=== PATIENT | male | born 1945 | race Caucasian/White ===

== ENCOUNTER 2016-05-06 11:38 | Inpatient (IN) | payer MEDICARE, OTHER ==
[~2016-05-06] VITALS: Ht 182.9 cm; Wt 101.3 kg
[2016-05-06] VITALS (9 sets, daily range): BP systolic 120–161; BP diastolic 51–81
--- NOTE | 2016-05-06 11:47 | PHYS DOC ---
Adult General HPI HPI Patient is a 71 year old male who presents with chest pain to the [facility]. He was seen and evaluated there and had an elevated troponin spoke with cardiology here who wanted the patient transferred to the ER for further evaluation and treatment. The patient currently states he's pain-free. He states overnight he had substernal chest pressure and he took 6 baby aspirin's. Upon arrival to the ER I believe he got to additional aspirins IV beta angelic and heparin. Currently he denies any pain or discomfort at this time. He does have a history of coronary disease and has had stents and bypass surgery in the past. Does continue to smoke 5-8 cigarettes daily. He has family history of coronary disease with his dad having coronary disease in his 50s. According to review records she has a history of diabetes, hypothyroidism, coronary artery disease, dyslipidemia, hearing loss, anemia, back abuse. He received aspirin in addition to 4000 units of IV heparin and 2 mg IV metoprolol prior to being transferred to [place]. Review of Systems Review of Systems Constitutional: Denies fever or chills [] Eyes: Denies change in visual acuity, redness, or eye pain [] HENT: Denies nasal congestion or sore throat [] Respiratory: Denies cough or shortness of breath [] Cardiovascular: No additional information not addressed in HPI [] GI: Denies abdominal pain, nausea, vomiting, bloody stools or diarrhea [] : Denies dysuria or hematuria [] Musculoskeletal: Denies back pain or joint pain [] Integument: Denies rash or skin lesions [] Neurologic: Denies headache, focal weakness or sensory changes [] Endocrine: Denies polyuria or polydipsia [] Allergies Allergies Allergies Coded Allergies Type Severity Reaction Last Updated Verified Jtuhskd-Qah-Scl Reductase Inhibitor Allergy Severe "LOSS OF MUSCLE " 05/06/16 Yes influenza virus vaccine qs 3655-0835 (36 mos +) Allergy Intermediate 05/06/16 No Physical Exam Physical Exam Constitutional: Well developed, well nourished, no acute distress, non-toxic appearance. [] HENT: Normocephalic, atraumatic, bilateral external ears normal, oropharynx moist, no oral exudates, nose normal. [] Eyes: PERRLA, EOMI, conjunctiva normal, no discharge. [] Neck: Normal range of motion, no tenderness, supple, no stridor. [] Cardiovascular:Heart rate regular rhythm, no murmur [] Lungs & Thorax: Bilateral breath sounds clear to auscultation [] Abdomen: Bowel sounds normal, soft, no tenderness, no masses, no pulsatile masses. [] Skin: Warm, dry, no erythema, no rash. [] Back: No tenderness, no CVA tenderness. [] Extremities: No tenderness, no cyanosis, no clubbing, ROM intact, no edema. [] Neurologic: Alert and oriented X 3, normal motor function, normal sensory function, no focal deficits noted. [] Psychologic: Affect normal, judgement normal, mood normal. [] Current Patient Data Vital Signs Vital Signs Date Time Temp Pulse Resp B/P Pulse Ox O2 Delivery O2 Flow Rate FiO2 05/06/16 11:38 98.2 66 158/70 99 Nasal Cannula 2 98.2 Lab Values Laboratory Tests Test 05/06/16 11:50 Creatine Kinase 262U/L (39-308) Creatine Kinase MB (Mass) 22.5ng/mL (0.0-3.6) H Creatine Kinase MB Relative Index 8.6% (0-4) H Troponin I Quantitative 3.775ng/mL (0.000-0.055) EKG EKG EKG shows sinus rhythm at a [address] elevations or T-wave inversions, EKG appears unchanged from previous EKG at the outside facility dated May 06 at 8:54 AM. Radiology/Procedures Radiology/Procedures [] Impressions: Elevated troponin Diabetes Coronary artery disease Tobacco abuse Course & Med Decision Making Course & Med Decision Making Pertinent Labs and Imaging studies reviewed. (See chart for details) Patient presents with lab work from outside facility with white blood cells of 6.1, hemoglobin 11.0, creatinine of 1.2 with a GFR 55, troponin noted to be 0.77. BNP of 180 within normal range is 0-100. Patient is being admitted to the hospitalist with cardiology consultation. Interim orders have been written. Dragon Disclaimer Dragon Disclaimer This electronic medical record was generated, in whole or in part, using a voice recognition dictation system. Departure Departure Impression: Primary Impression: Chest pain Disposition: ADMITTED INPATIENT Admitting Physician: Candido Becerra Condition: STABLE DG BOLANOS MD May 06, 2016 11:47
[2016-05-06 12:39] LABS: CKMB INDEX 8.6 % (0-4); CKMB MASS 22.5 ng/mL (0.0-3.6)
[2016-05-06] MEDS ORDERED: LIDOCAINE 2% 20 ML VIAL. ONE (13:07)
[2016-05-06] MEDS ORDERED: IODIXANOL 320 MG/ML 100 ML VIAL. ONE ×3 (13:07→14:05)
[2016-05-06 13:09] LABS: CALCIUM 8.7 mg/dL (8.5-10.1); CREATININE 1.2 mg/dL (0.7-1.3); GFR 59.7; POTASSIUM 4.3 mmol/L (3.5-5.1)
[2016-05-06 13:15] LABS: ALBUMIN 3.2 g/dL (3.4-5.0); ALBUMIN/GLOBULIN RATIO 0.9 (1.0-1.7); MAGNESIUM 2.2 mg/dL (1.8-2.4); TOTAL BILIRUBIN 0.3 mg/dL (0.2-1.0); TOTAL PROTEIN 6.7 g/dL (6.4-8.2)
--- NOTE | 2016-05-06 13:25 | PDOC2 ---
SRINATH OWENS MERCHANDISE EXAMINER 05/06/16 1325: CARDIAC CONSULT DATE OF CONSULT Date of Consult DATE: 05/06/16 TIME: 12:59 REASON FOR CONSULT Reason for Consult: NSTEMI REFERRING PHYSICIAN Referring Physician: Junior SOURCE Source: Chart review, Patient HISTORY OF PRESENT ILLNESS HISTORY OF PRESENT ILLNESS This is a pleasant 71 yo male admitted for complains of chest pain. Reports waking up at around 1 AM with SOA then followed by retrosternal pressure which lasted about 30 minutes and then went on and off, waxing and waning. He felt that 6 total of 81 mg ASA helped with his chest pain. Denies any nausea, diaphoresis, or palpitations. Denies any significant changes with his activity tolerance although his activity is about METS3-5 and utilizes a cane with walking. He decided to stay home upon onset of his chest pain and finally went to [facility] this morning and was told that he may have a mild heart attack and noted that his troponin was elevated. EMS was called at the clinic and was advised to come to [facility] ED. Currently he is symptom free. He just moved here from 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 He has CAD with CABG in 2005. He has not had any recent stress test and the last time he saw a granite countertop installer was about 2-3 yrs ago. Denies any VTE, falls, or any recent injury. No hx of arrhythmias but continues to be smoking tobacco. PAST MEDICAL HISTORY Cardiovascular: CAD, HTN, Hyperlipidemia Pulmonary: No pertinent hx CENTRAL NERVOUS SYSTEM: Other (No pertinent history) GI: Constipation, GERD Heme/Onc: No pertinent hx Hepatobiliary: No pertinent hx Psych: No pertinent hx Musculoskeletal: Osteoarthritis, Other (osteomyelitis) Rheumatologic: No pertinent hx Infectious disease: No pertinent hx ENT: Other (diabetic retinopathy; cataract; JAMUL mainly to ) Renal/: Benign prostatic enlarg. Endocrine: Diabetes (2- insulin dependent) Dermatology: No pertinent hx PAST SURGICAL HISTORY Past Surgical History: CABG (x3), Other (right foot surgery 10/2015 due to nonhealing wound with MRSA; eye surgery) FAMILY HISTORY Family History: Coronary Artery Disease (mother and father) SOCIAL HISTORY Smoke: <1 pack per day ALCOHOL: none Drugs: None Lives: with Family ALLERGIES ALLERGIES: Coded Allergies: Cnqdisv-Uhb-Ipx Reductase Inhibitor (Verified Allergy, Severe, "LOSS OF MUSCLE ", 05/06/16) influenza virus vaccine qs 0247-9250 (36 mos +) (Unverified Allergy, Intermediate, 05/06/16) ROS Review of System 14 point ROS evaluated with pertinent positives noted per HPI PHYSICAL EXAM General: Alert, Oriented X3, Cooperative, No acute distress HEENT: Atraumatic, Mucous membr. moist/pink Lungs: Clear to auscultation, Normal air movement Heart: Regular rate, Normal S1, Normal S2, Other (2/6 systolic murmur to WESLY border; S4) Abdomen: Soft, No tenderness, Other (truncal obesity) Extremities: No cyanosis, Other (3+ bilateral LE pitting edema) Skin: No breakdown, No significant lesion Neuro: Normal speech, Sensation intact Psych/Mental Status: Mental status NL, Mood NL MUSCULOSKELETAL: Osteoarthritic changes both hands VITALS VITALS Vital Signs Date Time Temp Pulse Resp B/P Pulse Ox O2 Delivery O2 Flow Rate FiO2 05/06/16 11:38 98.2 66 158/70 99 Nasal Cannula 2 98.2 LABS Lab: Laboratory Tests Test 05/06/16 11:50 Creatine Kinase 253U/L (39-308) Creatine Kinase MB (Mass) 22.5ng/mL (0.0-3.6) Creatine Kinase MB Relative Index 8.6% (0-4) Troponin I Quantitative 3.775ng/mL (0.000-0.055) IMAGES IMAGES CXR at [facility] 05/06/2016 with normal pulmonary vascularity. Notable for mild cardiomegaly. Lung volumes mildly decreased. No acute infiltrates or effusions. No bony abnormality. ASSESSMENT/PLAN ASSESSMENT/PLAN 1. NSTEMI: Initial troponin at [facility] at 0.7 and now at 3.7. EKG SR with RBBB, first degree AV block with anterolateral and aVR ST changes. ASA. Heparin IV bolus was given upon transfer from [facility]. Recommend [facility] today. Risks and benefits explained and agreeable to proceed. Labs and CXR reviewed from [facility]. TTE today. 2. CAD: CABG x3 at [facility] 2005. [facility] prior to CABG with 1 stent placed. Will try to obtain records. 3. HTN: does not take any antiHTN meds. Will reevaluate needs post cath. 4. HLP: intolerant to statin (significant myalgia and weakness), able to tolerate niacin. lipid panel. If uncontrolled then would consider PCSK9 inhibitor. 5. Hypothyroidism: TSH at 1.55. on replacement. 6. Tobaccoism: 25 pk yr. smoking cessation 7. DM2: insulin dependent. A1C. Per PCP 8. Hx of MRSA 9. Possible CKD 3 10. Chronic bilateral lower extremity edema, venous insufficiency? Problems: LOWELL QUACH MD 05/06/16 1555: CARDIAC CONSULT ALLERGIES ALLERGIES: Coded Allergies: Aqxubro-Zad-Zzk Reductase Inhibitor (Verified Allergy, Severe, "LOSS OF MUSCLE ", 05/06/16) influenza virus vaccine qs 3385-4698 (36 mos +) (Unverified Allergy, Intermediate, 05/06/16) ASSESSMENT/PLAN ASSESSMENT/PLAN Patient seen and examined. Agree with BOX TRUCK OWNER OPERATOR's assessment and plan. Patient with history of coronary artery disease s/p CABG has been admitted with non-STEMI. We will proceed with cardiac catheterization and possible angioplasty. Risks and benefits were explained. Check fasting lipid profile. Thank you for your consultation. Problems: SRINATH OWENS APRN May 06, 2016 13:25 LOWELL QUACH MD May 06, 2016 15:55
--- NOTE | 2016-05-06 13:32 | PDOC ---
MODERATE SEDATION ASSESSMENT RISKS/ALTERNATIVES Risks/Alternatives Risks and alternatives of this type of sedation and procedure discussed with: RISK/ALTERNATIVES: Patient H & P ON CHART H & P H & P on chart and reviewed for co-morbid conditions and appropriate labs. H&P ON CHART: Yes STATUS PREG STATUS ASSESSED: N/A MEDS/ALLERGIES REVIEWED Meds/Allergies Reviewed Medications and Allergies including time and route of recently administered narcotics and sedatives. MEDS/ALLERGIES REVIEWED: Yes ASA RATING ASA RATING: II AIRWAY ASSESSMENT Airway Assessment Airway patency, oral function limitations, presence of caps, crowns, dentures, partials, and ability to extend neck assessed. AIRWAY ASSESSMENT: Yes MALLAMPATI SCORE MALLAMPATI SCORE: II PRE-SEDATION ASSESSMENT PRE-SEDATION ASSESSMENT: Yes LOWELL QUACH MD May 06, 2016 13:32
[2016-05-06] MEDS ORDERED: HEPARIN for IV BOLUS 10,000 UNIT/10 ML VIAL. ONE (13:39)
[2016-05-06] MEDS ORDERED: MIDAZOLAM HCL/PF 5 MG/5 ML VIAL ONE (13:39)
[2016-05-06] MEDS ORDERED: NITROGLYCERIN 200 MCG/2 ML SYRINGE FOR CATH/VASC LAB. ONE (13:39)
[2016-05-06] MEDS ORDERED: FENTANYL PF 250 MCG/5 ML VIAL. ONE (13:39)
[2016-05-06] MEDS ORDERED: VERAPAMIL 5 MG/2 ML VIAL. ONE (13:39)
[2016-05-06] MEDS ORDERED: NITROGLYCERIN 200 MCG/2 ML SYRINGE FOR CATH/VASC LAB. IART ONE (14:00)
[2016-05-06] MEDS ORDERED: LIDOCAINE 2% 20 ML VIAL. IJ ONE (14:00)
[2016-05-06] MEDS ORDERED: HEPARIN for IV BOLUS 10,000 UNIT/10 ML VIAL. IART ONE (14:00)
[2016-05-06] MEDS ORDERED: FENTANYL PF 250 MCG/5 ML VIAL. IV ONE (14:00)
[2016-05-06] MEDS ORDERED: MIDAZOLAM HCL/PF 5 MG/5 ML VIAL IV ONE (14:00)
[2016-05-06] MEDS ORDERED: VERAPAMIL 5 MG/2 ML VIAL. IART ONE (14:00)
[2016-05-06] MEDS ORDERED: IODIXANOL 320 MG/ML 100 ML VIAL. IART ONE (14:00)
[2016-05-06] MEDS ORDERED: DEXTROSE 50% 25 GM / 50ML DISP.SYRIN. IV PRN (14:00)
[2016-05-06] MEDS ORDERED: hydrALAZINE 20 MG/ML VIAL. IVP PRN (14:00)
[2016-05-06] MEDS ORDERED: BIVALIRUDIN 250 MG VIAL IV ONE ×2 (14:04→14:15)
[2016-05-06] MEDS ORDERED: LEVO125T5 PO (14:33)
[2016-05-06] MEDS ORDERED: NIAC100T2 PO (14:33)
[2016-05-06] MEDS ORDERED: MULT1TAB52 PO (14:33)
[2016-05-06] MEDS ORDERED: ASPI-482 PO (14:33)
[2016-05-06] MEDS ORDERED: INSU100V8 SQ (14:33)
[2016-05-06] MEDS ORDERED: TAMS0.4C2 PO (14:33)
[2016-05-06] MEDS ORDERED: INSU100I17 SQ (14:33)
[2016-05-06] MEDS ORDERED: CLOPIDOGREL BISULFATE 75 MG TABLET ONE (15:01)
--- NOTE | 2016-05-06 15:04 | PDOC1 ---
History and Physical Date of Admission Date of Admission 05/06/16 Identification/Chief Complaint Chief Complaint chest pain Problems: Source Source: Chart review, Patient History of Present Illness History of Present Illness Patient is a 71 year old male who presents with chest pain to the [facility]. Pt had CABG before, compliant with meds, still smoking. He started to have chest pain last night, pressure, had sob, no N/V, fever, chills. He took 6 baby asa no improving. He went to CT, was found high troponin, and then spoke to dr. Webb and then sent here. Troponin >3. started heparin drip. got Cath today, one stent at RCA beyond the graft as per nurse. cough for 3 weeks, no copd. Past Medical History Cardiovascular: CAD, HTN, Hyperlipidemia Pulmonary: No pertinent hx CENTRAL NERVOUS SYSTEM: Other (No pertinent history) GI: Constipation, GERD Heme/Onc: No pertinent hx Hepatobiliary: No pertinent hx Psych: No pertinent hx Rheumatologic: No pertinent hx Infectious disease: No pertinent hx ENT: Other (diabetic retinopathy; cataract; [place] COURTE OREILLES mainly to ) Renal/: Benign prostatic enlarg. Endocrine: Diabetes (2- insulin dependent) Dermatology: No pertinent hx Past Surgical History Past Surgical History: CABG (x3), Other (right foot surgery 10/2015 due to nonhealing wound with MRSA; eye surgery) Family History Family History: Coronary Artery Disease (mother and father) Social History Smoke: <1 pack per day ALCOHOL: none Drugs: None Current Problem List Problem List Problems Medical Problems: (1) Chest pain Status: Acute Current Medications Current Medications Current Medications Medications (Trade) Dose Ordered Sig/Joey Start Time Stop Time Status Last Admin Dose Admin Bivalirudin (Angiomax) 250 mg 1X ONCE 05/06/16 14:15 05/06/16 14:16 DC Clopidogrel Bisulfate (Plavix) 75 mg STK-MED ONCE 05/06/16 15:01 05/06/16 15:02 DC Dextrose 12.5 gm PRN Q15MIN PRN 05/06/16 14:00 Fentanyl Citrate (Fentanyl 5ml Vial) 250 mcg 1X ONCE 05/06/16 14:00 05/06/16 14:01 DC Heparin Sodium (Porcine) 2,500 unit 1X ONCE 05/06/16 14:00 05/06/16 14:01 DC Heparin Sodium/ Sodium Chloride 1,000 unit 1X ONCE 05/06/16 14:00 05/06/16 14:01 DC Hydralazine HCl (Apresoline) 10 mg PRN Q4HRS PRN 05/06/16 14:00 Insulin Aspart (Novolog) 0-9 UNITS TIDWMEALS 05/06/16 17:00 Iodixanol (Visipaque 320) 100 ml STK-MED ONCE 05/06/16 14:05 05/06/16 14:06 DC Lidocaine HCl 20 ml 1X ONCE 05/06/16 14:00 05/06/16 14:01 DC Midazolam HCl (Versed) 5 mg 1X ONCE 05/06/16 14:00 05/06/16 14:01 DC Nitroglycerin (Nitroglycerin) 200 mcg 1X ONCE 05/06/16 14:00 05/06/16 14:01 DC Verapamil HCl (Verapamil) 2.5 mg 1X ONCE 05/06/16 14:00 05/06/16 14:01 DC Allergies Allergies Allergies Coded Allergies Type Severity Reaction Last Updated Verified Wiasuem-Myo-Psk Reductase Inhibitor Allergy Severe "LOSS OF MUSCLE " 05/06/16 Yes influenza virus vaccine qs 8237-1096 (36 mos +) Allergy Intermediate 05/06/16 No ROS Review of System CONSTITUTIONAL: No fever or chills EYES: No recent changes SKIN: No rash or itching CARDIOVASCULAR: No chest pain, syncope, palpitations, or edema RESPIRATORY: No SOB or cough GASTROINTESTINAL: No nausea, vomiting or abdominal pain NEUROLOGICAL: No headaches or weakness ENDOCRINE: No cold or heat intolerance GENITOURINARY: No urgency or frequency of urination MUSCULOSKELETAL: No back pain or joint pain LYMPHATICS: No enlarged lymph nodes PSYCHIATRIC: No anxiety or depression Physical Exam Physical Exam GEN.: No apparent distress. Alert and oriented. HEENT: Head is normocephalic, atraumatic NECK: Supple. LUNGS: Clear to auscultation. HEART: RRR, S1, S2 present. Peripheral pulses intact ABDOMEN: Soft, nontender. Positive bowel sounds. EXTREMITIES: Without any cyanosis. NEUROLOGIC: Normal speech, normal tone PSYCHIATRIC: Normal affect, normal mood. SKIN: No ulcerations Vitals Vitals Vital Signs Date Time Temp Pulse Resp B/P Pulse Ox O2 Delivery O2 Flow Rate FiO2 05/06/16 14:57 69 14 95 Room Air 05/06/16 12:42 160/68 2 05/06/16 11:38 98.2 98.2 Labs Labs Laboratory Tests Test 05/06/16 11:50 Sodium Level 140mmol/L (136-145) Potassium Level 4.3mmol/L (3.5-5.1) Chloride Level 106mmol/L (98-107) Carbon Dioxide Level 28mmol/L (21-32) Anion Gap 6 (6-14) Blood Urea Nitrogen 27mg/dL (8-26) Creatinine 1.2mg/dL (0.7-1.3) Estimated GFR (Cockcroft-Gault) 59.7 BUN/Creatinine Ratio 23 (6-20) Glucose Level 96mg/dL (70-99) Calcium Level 8.7mg/dL (8.5-10.1) Magnesium Level 2.2mg/dL (1.8-2.4) Total Bilirubin 0.3mg/dL (0.2-1.0) Aspartate Amino Transf (AST/SGOT) 38U/L (15-37) Alanine Aminotransferase (ALT/SGPT) 37U/L (16-63) Alkaline Phosphatase 68U/L (46-116) Creatine Kinase 262U/L (39-308) Creatine Kinase MB (Mass) 22.5ng/mL (0.0-3.6) Creatine Kinase MB Relative Index 8.6% (0-4) Troponin I Quantitative 3.775ng/mL (0.000-0.055) Total Protein 6.7g/dL (6.4-8.2) Albumin 3.2g/dL (3.4-5.0) Albumin/Globulin Ratio 0.9 (1.0-1.7) Thyroid Stimulating Hormone (TSH) 1.917uIU/mL (0.358-3.74) Laboratory Tests Test 05/06/16 11:50 Sodium Level 140mmol/L (136-145) Potassium Level 4.3mmol/L (3.5-5.1) Chloride Level 106mmol/L (98-107) Carbon Dioxide Level 28mmol/L (21-32) Anion Gap 6 (6-14) Blood Urea Nitrogen 27mg/dL (8-26) Creatinine 1.2mg/dL (0.7-1.3) Estimated GFR (Cockcroft-Gault) 59.7 BUN/Creatinine Ratio 23 (6-20) Glucose Level 96mg/dL (70-99) Calcium Level 8.7mg/dL (8.5-10.1) Magnesium Level 2.2mg/dL (1.8-2.4) Total Bilirubin 0.3mg/dL (0.2-1.0) Aspartate Amino Transf (AST/SGOT) 38U/L (15-37) Alanine Aminotransferase (ALT/SGPT) 37U/L (16-63) Alkaline Phosphatase 68U/L (46-116) Creatine Kinase 262U/L (39-308) Creatine Kinase MB (Mass) 22.5ng/mL (0.0-3.6) Creatine Kinase MB Relative Index 8.6% (0-4) Troponin I Quantitative 3.775ng/mL (0.000-0.055) Total Protein 6.7g/dL (6.4-8.2) Albumin 3.2g/dL (3.4-5.0) Albumin/Globulin Ratio 0.9 (1.0-1.7) Thyroid Stimulating Hormone (TSH) 1.917uIU/mL (0.358-3.74) VTE Prophylaxis Ordered VTE Prophylaxis Devices: Yes VTE Pharmacological Prophylaxi: Yes Assessment/Plan Assessment/Plan 1. NSTEM post PCI with 1 stent at RCA 2. h/o CAD: CABG x3 at [facility] 2006. [facility] prior to CABG with 1 stent placed. 3. HTN 4. HLP 5. Hypothyroidism 6. Tobaccoism: 25 pk yr. smoking cessation 7. DM2: insulin dependent. on lantus 30u and aspart 10u tid 8. Hx of MRSA 9. ckd2 10. Chronic bilateral lower extremity edema 2/2 venous insufficiency? plan: 1. POST pci, FU with card 2. on asa , plavix 3. slightly decrease insulin, levemir 25u qhs, aspart 8u tid, SSI 4. pt may benefit from ACEI, echo pending mild bradycardia 5. cont synthroid, tsh done check hba1c, lipid panel check CXR, albuterol prn dvt ppx NGOC DOMINGUEZ MD May 06, 2016 15:04
[2016-05-06] MEDS ORDERED: ACETAMINOPHEN 325 MG TABLET. PO PRN ×2 (15:15→16:15)
[2016-05-06] MEDS ORDERED: MORPHINE SULFATE 4 MG/ML DISP.SYRIN. IV PRN (15:15)
[2016-05-06] MEDS ORDERED: ONDANSETRON PF 4 MG/2 ML VIAL. IV PRN (15:15)
[2016-05-06] MEDS ORDERED: MORPHINE SULFATE 2 MG/ML DISP.SYRIN. IV PRN (15:15)
[2016-05-06] MEDS ORDERED: CLOPIDOGREL BISULFATE 75 MG TABLET PO ONE (15:15)
--- NOTE | 2016-05-06 15:22 | EKG ---
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
[2016-05-06] MEDS ORDERED: ALBUTEROL SULFATE 2.5 MG/3 ML NEBU. NEB PRN (15:45)
[2016-05-06] MEDS ORDERED: IV 1/2 NORMAL SALINE 1,000 ML IV SCH (16:03)
[2016-05-06] MEDS ORDERED: NITROGLYCERIN SUBLINGUAL 0.4 MG BOTTLE OF 25. SL PRN (16:15)
[2016-05-06] MEDS: INSULIN ASPART 300 UNITS/3 ML INSULN.PEN SQ SCH ×2 (16:30→17:00)
--- NOTE | 2016-05-06 16:41 | CARD ---
APPROVED REPORT Procedure(s) performed: 1. Left heart catheterization, selective coronary angiography via left trans radial approach 2. Successful PCI/drug eluting stent placement to the posterolateral branch of right coronary artery INDICATION The indication(s) include : non-STEMI . PROCEDURE NARRATIVE After explaining the risks, benefits and alternative options, informed consent was obtained from jose ent. Patient was brought to the cardiac Die Maker Trim and his left wrist was prepped and draped in the us ual fashion after confirming a positive modified Brock's test. Arterial access was obtained the left radial artery and 6 [place] sheath was inserted. 6 [place] JR4 catheter was used to perform selective angiography of the left internal mammary artery graft to the left anterior descending artery, the na tive right coronary artery and also the saphenous vein graft to the obtuse marginal branch. 6 [place] JL4 catheter was used to perform selective angiography of the left coronary artery. 6 [place] multip urpose catheter was used to perform selective angiography of the saphenous vein graft to the right co ronary artery. The following findings were noted. FINDINGS 1. The left main coronary artery arose from the left sinus of Valsalva, gave rise to the left antige n descending and left circumflex arteries and did not show any significant stenosis. 2. The left anterior descending artery showed complete occlusion proximally. 3. The left circumflex artery showed 50% stenosis in the proximal to midsegment and 90% stenosis inv olving the proximal segment of the first obtuse marginal branch. The second obtuse marginal branch d id not show any significant stenosis. 4. The right coronary artery showed complete occlusion proximally. 5. The left internal mammary artery graft to the left anterior descending artery was widely patent. Distal to the anastomosis, the [place] left anterior descending artery did not show any significant s tenosis. 6. The saphenous vein graft to the first obtuse marginal branch did not show any significant stenosi s. 7. The saphenous vein graft to the right coronary artery itself did not show any significant stenosi s but the [place] posterolateral branch showed a long 90% stenosis involving the proximal and mid segm ents. INTERVENTION After initial unsuccessful attempts at gaining good guide support using 6 [place] multipurpose guide c dar[place], a 6 [place] RCB catheter was used to engage the saphenous vein graft to the right coronary ar nellie. The stenosis in the posterolateral branch was crossed with a 0.014 inch Oilex pro-water guidew reigna. This was predilated with a 2.5 x 20 mm trek balloon following which this was successfully treat ed with a 2.5 x 38 mm Xience alpine drug-eluting stent. Follow-up angiography showed resolution of t he stenosis to 0% with SONJA 3 distal flow. Patient tolerated the procedure well. Hemostasis was ach ieved using TR band. There were no immediate complications. Conclusion 1. Severe [place] vessel coronary artery disease s/p coronary artery bypass surgery as stated above w ith patent left internal mammary artery graft to the left anterior descending artery, patent saphenou s vein graft to the obtuse marginal branch and patent saphenous vein graft to the right coronary asif ry with [place] posterolateral branch beyond anastomosis showing 90% stenosis. 2. Successful PCI/drug eluting stent placement to the posterolateral branch of right coronary artery via the saphenous vein graft. Recommendations 1. Aspirin 325 mg daily 2. Plavix 75 mg daily for preferably one year 3. Cardiovascular risk factor modification.
--- NOTE | 2016-05-06 16:47 | CARD ---
APPROVED REPORT EXAM: Two-dimensional and M-mode echocardiogram with Doppler and color Doppler. Other Information Quality : Good INDICATION Non STEMI Surgery/Intervention CABD DIMENSIONS RVDd4.0 (2.9-3.5cm)Left Atrium(2D)4.7 (1.6-4.0cm) IVSd1.3 (0.7-1.1cm)Aortic Root(2D)3.4 (2.0-3.7cm) LVDd5.4 (3.9-5.9cm)LVOT Diameter2.5 (1.8-2.4cm) PWd0.8 (0.7-1.1cm)LVDs4.6 (2.5-4.0cm) FS (%) 25.0 %SV44.6 ml LVEF(%)50.0 (>50%) Aortic Valve AoV Peak Enoc.173.3cm/sAoV VTI38.2cm AO Peak GR.12.0mmHgLVOT VTI 18.01cm AO Mean GR.7mmHgAVA (VTI)2.30cm2 Mitral Valve MV E Wggcpiqc633.0cm/sMV DECEL [id number] MV A Gjunweie61.4cm/sE/A Ratio1.6 TDI Lateral E' P. V4.70cm/sMedial E' P. V4.76cm/s E/Lateral E'23.4E/Medial E'23.1 Tricuspid Valve TR P. Vwcjkcqf271sb/sRAP HYDOTAUV1fuUu TR Peak Gr.22gbPyCRXY93eoSa Pulmonary Vein S1 Tcvekyub56.7cm/sS2 Ijkettza54.11cm/s D2 Xlstcejh75.1cm/s LEFT VENTRICLE The left ventricle is normal size. There is mild concentric left ventricular hypertrophy. The Ejectio n Fraction is 50-55%. There is mild hypokinesis in the basal inferoposterior wall. Transmitral Dopple r flow pattern is Grade II-pseudonormal filling dynamics. RIGHT VENTRICLE The right ventricle is normal size. The right ventricular systolic function is normal. ATRIA The left atrium is mildly dilated. The right atrium size is normal. The interatrial septum is intact with no evidence for an atrial septal defect or patent foramen ovale as noted on 2-D or Doppler imagi ng. AORTIC VALVE The aortic valve is mildly thickened but opens well. Doppler and Color Flow revealed trace to mild ao rtic regurgitation. There is no significant aortic valvular stenosis. MITRAL VALVE The mitral valve is calcified but opens well. There is no evidence of mitral valve prolapse. There is no mitral valve stenosis. Doppler and Color-flow revealed mild mitral regurgitation. TRICUSPID VALVE The tricuspid valve is normal in structure and function. Doppler and Color Flow revealed trace tricus pid regurgitation. The PA pressure was estimated at 29 mmHg. There is no tricuspid valve stenosis. PULMONIC VALVE The pulmonary valve is normal in structure and function. Doppler and Color Flow revealed mild pulmoni c valvular regurgitation. There is no pulmonic valvular stenosis. GREAT VESSELS The aortic root is mildly enlarged at 3.4 cm. The ascending aorta is mildly dilated at 3.4 cm. The IV C was not visualized. PERICARDIAL EFFUSION There is no evidence of significant pericardial effusion. Critical Notification Critical Value: No <Conclusion> There is mild hypokinesis in the basal inferoposterior wall. The Ejection Fraction is 50-55%. The left atrium is mildly dilated. Trace to mild aortic regurgitation. Mild mitral regurgitation. Trace tricuspid regurgitation. The PA pressure was estimated at 29 mmHg. There is no evidence of significant pericardial effusion.
[2016-05-06] MEDS ORDERED: NALOXONE 0.4 MG/ML VIAL. ONE (16:54)
[2016-05-06] MEDS ORDERED: FLUMAZENIL 0.5 MG/5 ML VIAL. IV ONE (17:15)
[2016-05-06] MEDS ORDERED: NALOXONE 0.4 MG/ML VIAL. IV ONE (17:15)
--- NOTE | 2016-05-06 17:36 | RAD ---
PROCEDURE CT head without intravenous contrast. HISTORY Pre cardiac catheterization day. Swelling and fusion since waking. TECHNIQUE Axial images are obtained of the head from the skull base through the vertex without IV contrast Exposure: One or more of the following individualized dose reduction techniques were utilized for this examination: 1. Automated exposure control. 2. Adjustment of the mA and/or kV according to patient size. 3. Use of iterative reconstruction technique. COMPARISON None. FINDINGS Evaluation for subtle hemorrhage is limited secondary to presence of intravenous contrast within vascular structures. There is also motion artifact at multiple levels which could obscure subtle to medium-sized abnormalities. The ventricles are appropriate in size, shape, and location for the patient's age.No obvious intracranial mass, mass-effect, midline shift, hemorrhage or obvious acute infarction is identified.Basilar cisterns are patent. There is appropriate enhancement of the major intracranial vessels. Bone windows demonstrate no acute calvarial abnormality.The visualized paranasal sinuses appear clear. IMPRESSION 1. Limited examination as described above. 2. No acute intracranial process. Please note that CT can be relatively insensitive to acute ischemic infarction for up to 24 hours after symptom onset. 3. Results called to Tracey, an ICU nurse, who will relay the message to the clinical service and the patient's ICU nurse. Phone call made at 1734 hours. Electronically signed by: Boyd Clayton MD (May 06, 2016 17:35:04)
[2016-05-06] MEDS ORDERED: PNEUMOCOCCAL VAX SCREEN BY RX. MC PRN (18:15)
[2016-05-06] MEDS ORDERED: HALOPERIDOL LACT 5 MG/ML VIAL. IVP PRN (19:15)
--- NOTE | 2016-05-06 19:42 | PDOC2 ---
NEUROLOGY CONSULT Date of Admission Date of Admission Full Report Dictated DATE: 05/06/16 TIME: 19:40 Current Medications Current Medications Current Medications Heparin Sodium/ Sodium Chloride 500 ml @ As Directed STK-MED ONCE .ROUTE ; Start 05/06/16 at 13:07; Stop 05/06/16 at 13:08; Status DC Lidocaine HCl 20 ml STK-MED ONCE .ROUTE ; Start 05/06/16 at 13:07; Stop at 13:08; Status DC Iodixanol (Visipaque 320) 100 ml STK-MED ONCE .ROUTE ; Start 05/06/16 at 13:07; Stop 05/06/16 at 13:08; Status DC Iodixanol (Visipaque 320) 100 ml STK-MED ONCE .ROUTE ; Start 05/06/16 at 13:17; Stop 05/06/16 at 13:18; Status DC Nitroglycerin (Nitroglycerin) 200 mcg STK-MED ONCE .ROUTE ; Start 05/06/16 at 13 :39; Stop 05/06/16 at 13:40; Status DC Verapamil HCl (Verapamil) 5 mg STK-MED ONCE .ROUTE ; Start 05/06/16 at 13:39; Stop 05/06/16 at 13:40; Status DC Heparin Sodium (Porcine) 10,000 unit STK-MED ONCE .ROUTE ; Start 05/06/16 at 13: 39; Stop 05/06/16 at 13:40; Status DC Midazolam HCl (Versed) 5 mg STK-MED ONCE .ROUTE ; Start 05/06/16 at 13:39; Stop 05/06/16 at 13:40; Status DC Fentanyl Citrate (Fentanyl 5ml Vial) 250 mcg STK-MED ONCE .ROUTE ; Start at 13:39; Stop 05/06/16 at 13:40; Status DC Nitroglycerin (Nitroglycerin) 200 mcg 1X ONCE IART Last administered on t 15:08; Start 05/06/16 at 14:00; Stop 05/06/16 at 14:01; Status DC Verapamil HCl (Verapamil) 2.5 mg 1X ONCE IART Last administered on 05/06/16t 15:08; Start 05/06/16 at 14:00; Stop 05/06/16 at 14:01; Status DC Heparin Sodium (Porcine) 2,500 unit 1X ONCE IART Last administered on 15:06; Start 05/06/16 at 14:00; Stop 05/06/16 at 14:01; Status DC Heparin Sodium/ Sodium Chloride 1,000 unit 1X ONCE IART Last administered on 14:00; Start 05/06/16 at 14:00; Stop 05/06/16 at 14:01; Status DC Midazolam HCl (Versed) 5 mg 1X ONCE IV Last administered on 05/06/16 15:06; Start 05/06/16 at 14:00; Stop 05/06/16 at 14:01; Status DC Fentanyl Citrate (Fentanyl 5ml Vial) 250 mcg 1X ONCE IV Last administered on 15:07; Start 05/06/16 at 14:00; Stop 05/06/16 at 14:01; Status DC Iodixanol (Visipaque 320) 100 ml 1X ONCE IART Last administered on 05/06/16 15:07; Start 05/06/16 at 14:00; Stop 05/06/16 at 14:01; Status DC Lidocaine HCl 20 ml 1X ONCE IJ Last administered on 05/06/16 15:07; Start at 14:00; Stop 05/06/16 at 14:01; Status DC Hydralazine HCl (Apresoline) 10 mg PRN Q4HRS PRN IVP ELEVATED BP, SEE COMMENTS ; Start 05/06/16 at 14:00 Insulin Aspart (Novolog) 0-9 UNITS TIDWMEALS SQ ; Start 05/06/16 at 17:00 Dextrose 12.5 gm PRN Q15MIN PRN IV SEE COMMENTS; Start 05/06/16 at 14:00 Bivalirudin (Angiomax) 250 mg STK-MED ONCE IV ; Start 05/06/16 at 14:04; Stop at 14:05; Status DC Iodixanol (Visipaque 320) 100 ml STK-MED ONCE .ROUTE ; Start 05/06/16 at 14:05; Stop 05/06/16 at 14:06; Status DC Bivalirudin (Angiomax) 250 mg 1X ONCE IV Last administered on 05/06/16 15:06 ; Start 05/06/16 at 14:15; Stop 05/06/16 at 14:16; Status DC Clopidogrel Bisulfate (Plavix) 75 mg STK-MED ONCE .ROUTE ; Start 05/06/16 at 15: 01; Stop 05/06/16 at 15:02; Status DC Clopidogrel Bisulfate (Plavix) 600 mg 1X ONCE PO Last administered on t 15:08; Start 05/06/16 at 15:15; Stop 05/06/16 at 15:17; Status DC Acetaminophen (Tylenol) 650 mg PRN Q6HRS PRN PO MILD PAIN / TEMP; Start at 15:15 Ondansetron HCl (Zofran) 4 mg PRN Q6HRS PRN IV NAUSEA/VOMITING; Start 05/06/16 at 15:15 Morphine Sulfate 2 mg PRN Q2HR PRN IV MILD-MOD PAIN; Start 05/06/16 at 15:15 Morphine Sulfate 4 mg PRN Q2HR PRN IV SEVERE PAIN; Start 05/06/16 at 15:15 Aspirin (Ecotrin) 81 mg DAILYWBKFT PO ; Start 05/07/16 at 08:00; Stop 05/07/16 at 08:00; Status DC Levothyroxine Sodium (Synthroid) 125 mcg DAILY07 PO ; Start 05/07/16 at 07:00 Tamsulosin HCl (Flomax) 0.4 mg DAILY PO ; Start 05/07/16 at 09:00 Multivitamins/ Calcium (Thera M Plus) 1 tab DAILY PO ; Start 05/07/16 at 09:00 Niacin (Slo-Niacin) 250 mg QHS PO ; Start 05/06/16 at 21:00 Insulin Detemir (Levemir) 25 units QHS SQ ; Start 05/06/16 at 21:00 Insulin Aspart (Novolog) 8 units TIDAC SQ ; Start 05/06/16 at 16:30 Albuterol Sulfate 2.5 mg 2.5 mg PRN Q4HRS PRN NEB SHORTNESS OF BREATH; Start at 15:45 Sodium Chloride (Iv Sodium Chloride 0.45%) 1,000 ml @ 75 mls/hr [id number] IV ; Start 05/06/16 at 16:03 Aspirin (Ecotrin) 325 mg DAILYWBKFT PO ; Start 05/07/16 at 08:00 Clopidogrel Bisulfate (Plavix) 75 mg DAILYWBKFT PO ; Start 05/07/16 at 08:00 Acetaminophen (Tylenol) 650 mg PRN Q6HRS PRN PO MILD PAIN / TEMP; Start at 16:15 Nitroglycerin (Nitrostat) 0.4 mg PRN Q5MIN PRN SL CHEST PAIN; Start 05/06/16 at 16:15 Metoprolol Tartrate (Lopressor) 12.5 mg BID PO ; Start 05/06/16 at 21:00 Naloxone HCl (Narcan) 0.4 mg STK-MED ONCE .ROUTE ; Start 05/06/16 at 16:54; Stop 05/06/16 at 16:55; Status DC Naloxone HCl (Narcan) 0.4 mg 1X ONCE IV Last administered on 05/06/16 17:15; Start 05/06/16 at 17:15; Stop 05/06/16 at 17:16; Status DC Flumazenil (Romazicon) 0.1 mg 1X ONCE IV Last administered on 05/06/16 17:15 ; Start 05/06/16 at 17:15; Stop 05/06/16 at 17:16; Status DC Pneumococcal Polyvalent Vaccine (Do NOT chart on this placeholder) 1 each PRN 1X PRN MC SEE COMMENTS; Start 05/06/16 at 18:15 Haloperidol Lactate (Haldol) 1 mg PRN Q4HRS PRN IVP AGITATION Last administered on 05/06/16 19:22; Start 05/06/16 at 19:15 Haloperidol Lactate (Haldol) 2 mg PRN Q4HRS PRN IVP AGITATION; Start 05/06/16 at 19:15 Active Scripts Active Reported Tamsulosin Hcl 0.4 Mg Cap.er.24h 0.4 Mg PO DAILY Niacin 100 Mg Tablet 100 Mg PO TID Multivitamins (Multivitamin) 1 Each Tablet 1 Each PO DAILY Levothyroxine Sodium 125 Mcg Tablet 125 Mcg PO DAILYAC Lantus (Insulin Glargine,Hum.rec.anlog) 100 Unit/1 Ml Vial 1 Unit SQ QHS Novolog Flexpen (Insulin Aspart) 100 Unit/1 Ml Insuln.pen 1 Unit SQ TIDAC Aspir 81 (Aspirin) 81 Mg Tablet. 81 Mg PO DAILY Allergies Allergies: Coded Allergies: Egjeooh-Gzy-Mcb Reductase Inhibitor (Verified Allergy, Severe, "LOSS OF MUSCLE ", 05/06/16) influenza virus vaccine qs [id number] (36 mos +) (Unverified Allergy, Intermediate, 05/06/16) Vitals VITALS Vital Signs Date Time Temp Pulse Resp B/P Pulse Ox O2 Delivery O2 Flow Rate FiO2 05/06/16 18:00 68 20 142/76 Nasal Cannula 2.0 05/06/16 15:30 97.2 97.2 05/06/16 15:07 94 Labs Labs Laboratory Tests Test 05/06/16 11:50 05/06/16 18:38 Sodium Level 140mmol/L (136-145) Potassium Level 4.3mmol/L (3.5-5.1) Chloride Level 106mmol/L (98-107) Carbon Dioxide Level 28mmol/L (21-32) Anion Gap 6 (6-14) Blood Urea Nitrogen 27mg/dL (8-26) Creatinine 1.2mg/dL (0.7-1.3) Estimated GFR (Cockcroft-Gault) 59.7 BUN/Creatinine Ratio 23 (6-20) Glucose Level 96mg/dL (70-99) Calcium Level 8.7mg/dL (8.5-10.1) Magnesium Level 2.2mg/dL (1.8-2.4) Total Bilirubin 0.3mg/dL (0.2-1.0) Aspartate Amino Transf (AST/SGOT) 38U/L (15-37) Alanine Aminotransferase (ALT/SGPT) 37U/L (16-63) Alkaline Phosphatase 68U/L (46-116) Creatine Kinase 262U/L (39-308) Creatine Kinase MB (Mass) 22.5ng/mL (0.0-3.6) Creatine Kinase MB Relative Index 8.6% (0-4) Troponin I Quantitative 3.775ng/mL (0.000-0.055) Total Protein 6.7g/dL (6.4-8.2) Albumin 3.2g/dL (3.4-5.0) Albumin/Globulin Ratio 0.9 (1.0-1.7) Thyroid Stimulating Hormone (TSH) 1.917uIU/mL (0.358-3.74) Glucose (Fingerstick) 74mg/dL (70-99) Laboratory Tests Test 05/06/16 11:50 05/06/16 18:38 Sodium Level 140mmol/L (136-145) Potassium Level 4.3mmol/L (3.5-5.1) Chloride Level 106mmol/L (98-107) Carbon Dioxide Level 28mmol/L (21-32) Anion Gap 6 (6-14) Blood Urea Nitrogen 27mg/dL (8-26) Creatinine 1.2mg/dL (0.7-1.3) Estimated GFR (Cockcroft-Gault) 59.7 BUN/Creatinine Ratio 23 (6-20) Glucose Level 96mg/dL (70-99) Calcium Level 8.7mg/dL (8.5-10.1) Magnesium Level 2.2mg/dL (1.8-2.4) Total Bilirubin 0.3mg/dL (0.2-1.0) Aspartate Amino Transf (AST/SGOT) 38U/L (15-37) Alanine Aminotransferase (ALT/SGPT) 37U/L (16-63) Alkaline Phosphatase 68U/L (46-116) Creatine Kinase 262U/L (39-308) Creatine Kinase MB (Mass) 22.5ng/mL (0.0-3.6) Creatine Kinase MB Relative Index 8.6% (0-4) Troponin I Quantitative 3.775ng/mL (0.000-0.055) Total Protein 6.7g/dL (6.4-8.2) Albumin 3.2g/dL (3.4-5.0) Albumin/Globulin Ratio 0.9 (1.0-1.7) Thyroid Stimulating Hormone (TSH) 1.917uIU/mL (0.358-3.74) Glucose (Fingerstick) 74mg/dL (70-99) Assessment/Plan Assessment/Plan Patient is a 71-year-old man who suffered a myocardial infarction and underwent a stent today. He appears encephalopathic. He may have some receptive aphasia but he does not have word salad. I do not see any focal weakness, sensory change or coordination change. I anticipate this is drug effect and the stress of the myocardial infarction requiring stent placement. He is on aspirin and Plavix for the stent which would also help for stroke prevention. He is 5 hours out from his last known normal so is not a candidate for TPA even if indicated. I'll be happy to reevaluate. ASHISH TAO MD May 06, 2016 19:42
[2016-05-06] MEDS: HALOPERIDOL LACT 5 MG/ML VIAL. IVP PRN ×2 (20:14→23:54)
[2016-05-06] MEDS: NIACIN ER 250 MG TABLET.ER PO SCH (21:00)
[2016-05-06] MEDS: INSULIN DETEMIR 300 UNITS/3 ML INSULN.PEN. SQ SCH (21:00)
[2016-05-06] MEDS: METOPROLOL TART IMMED RELEASE 25 MG TABLET PO SCH (21:53)
[2016-05-07] VITALS (24 sets, daily range): BP systolic 87–172; BP diastolic 47–82
[2016-05-07 04:33] LABS: BASO % 0 % (0-3); EOS % 0 % (0-3); HEMATOCRIT 28.9 % (39.0-53.0); HEMOGLOBIN 9.9 g/dL (13.0-17.5); LYMPH # 0.8 x10^3/uL (1.0-4.8); LYMPH % 9 % (24-48); MEAN CORPUSCULAR HEMOGLOBIN 31 pg (25-35); MEAN CORPUSCULAR HGB CONC 34 g/dL (31-37); MEAN CORPUSCULAR VOLUME 90 fL (79-100); MONO % 10 % (0-9); NEUT % 80 % (31-73); PLATELET COUNT 217 x10^3/uL (140-400); RED CELL DISTRIBUTION WIDTH 13.6 % (11.5-14.5); WHITE BLOOD COUNT 8.9 x10^3/uL (4.0-11.0)
[2016-05-07] MEDS: HALOPERIDOL LACT 5 MG/ML VIAL. IVP PRN (04:49)
[2016-05-07 04:50] LABS: CALCIUM 8.3 mg/dL (8.5-10.1); CREATININE 1.3 mg/dL (0.7-1.3); GFR 54.4; POTASSIUM 3.8 mmol/L (3.5-5.1)
[2016-05-07 04:53] LABS: CHOLESTEROL/HDL RATIO 2.4
[2016-05-07] MEDS: INSULIN ASPART 300 UNITS/3 ML INSULN.PEN SQ SCH ×6 (07:30→16:47)
--- NOTE | 2016-05-07 07:47 | RAD ---
Portable chest, 05/06/2016: History: Cough, confusion No previous chest radiographs are available at this time for comparison purposes. The patient is rotated to the right. There has been a previous median sternotomy. The heart is at the upper limits of normal in size. The depth of inspiration is suboptimal producing mild prominence of the perihilar markings. No pulmonary consolidation is seen. There is no evidence of pleural fluid. IMPRESSION: 1. Borderline cardiomegaly. 2. No acute abnormality is detected.
[2016-05-07] MEDS ORDERED: ASPIRIN ENTERIC COATED 81 MG TABLET.DR. PO SCH (08:00)
[2016-05-07] MEDS: LEVOTHYROXINE 125 MCG TABLET PO SCH (08:10)
--- NOTE | 2016-05-07 08:12 | CONS ---
DATE OF CONSULTATION: 05/06/2016 REFERRING PHYSICIAN: Dr. Becerra. REASON FOR CONSULTATION: Possible stroke. HISTORY OF PRESENT ILLNESS: The patient is a 71-year-old man, who initially presented with chest pain. He had been experiencing relentless pain that was not relieved by aspirin. He initially went to [place], but was referred to [facility]. He underwent a catheterization and ultimately required a stent. His last known normal was around 1:30 today before he went into the [employer]. After he came out of the [employer], he was very slow to awaken. He was transferred to the Intensive Care Unit and remained very groggy and lethargic. As he has been waking up, he has showed signs of confusion and there was also concern for a facial droop. I have been asked to evaluate for stroke. The time of my evaluation was 1829 which was the time the consult was called in, which was 5 hours from last known normal. PAST MEDICAL HISTORY: 1. Coronary artery disease. 2. Hypertension. 3. Hyperlipidemia. 4. Osteoarthritis. 5. Diabetic retinopathy. 6. Cataracts. 7. Benign prostatic hypertrophy with urinary obstruction. 8. Type 2 diabetes. 9. Tobacco abuse. 10. Coronary artery bypass surgery. 11. 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 ALLERGIES: STATINS, INFLUENZA VIRUS VACCINE. MEDICATIONS PRIOR TO ADMISSION: Aspirin 81 mg, insulin, levothyroxine 125 mcg, multivitamins, niacin, and tamsulosin 0.4 mg. FAMILY HISTORY: Both parents had coronary artery disease. SOCIAL HISTORY: He lives with his family. He smokes less than a pack of cigarettes a day. He does not drink alcohol or use recreational drugs. REVIEW OF SYSTEMS: Was primarily obtained from the family. He had not complained of any headache or sudden change of vision. He is very hard of hearing. He has been able to swallow. He has had a recent cough and cold. He has had chest pain. There has been ____ complaint of abdominal pain. He does not complain of bone or joint pain. He has not had fever or rash. No gastrointestinal complaints. He does have genitourinary complaints with difficulty urinating. He has numbness from diabetes. He has had edema in his extremities, the left is always worse than the right as he was previously injured. PHYSICAL EXAMINATION: VITAL SIGNS: Blood pressure 142/76, pulse 68, respirations 20, temperature 97.2 degrees axillary. Oximetry was 94% on 2 liters nasal cannula. GENERAL: He was awake and alert. He kept saying the same thing over and over again, which was not satisfied by anything told to him. He seemed to have difficulty comprehending speech. When he spoke however, it was in a full sentence and it was coherent. He primarily wanted to use the bathroom. Even though he had a Gallardo catheter in place, he still felt like he had to urinate. He was not oriented. NEUROLOGIC: Examination of the cranial nerves revealed visual rodriges appeared intact to threat. Eyes were conjugate. Oculocephalic reflex was intact. Corneal reflex was intact. Pupils were 3 mm and reactive. He appeared to have some facial asymmetry, but not with activation. When he talked and smiled, both sides were entirely symmetric. When he blinked, it was symmetric. Hearing was intact to loud noise. His tongue was midline when he talked. Muscle bulk and tone was normal. There was no spasticity. He moved arms and legs fairly symmetrically and with good power. Formal power testing was not possible. Reflex testing revealed symmetric reflexes in the arms and knees, absent at the ankles. Toes were not upgoing or downgoing. Coordination testing was not possible, but spontaneous movements were well coordinated. Sensory examination was intact to pain with nail bed pressure in the upper extremities. He did not perceive nail bed pressure in the feet. Peripheral pulses were symmetric in the upper extremities and palpable in the feet. He had a great deal of edema in the feet and calves, left worse than the right. REVIEW OF LABORATORY DATA: Chemistry profile revealed normal electrolytes. BUN was 27, creatinine 1.2. Liver enzymes were not elevated except for AST at 38. CPK 282. Troponin was elevated at 3.775. Total protein was normal, but albumin was low at 3.2. TSH was normal. GFR calculated at 59.7. CT scan of the head was performed today at 1735 and did not reveal an acute lesion. IMPRESSION AND PLAN: The patient is a 71-year-old man, who had chest pain and was found to have a single-vessel stenosis which was stented. I am relieved that the CAT scan did not reveal any hemorrhage. He does not exactly have word salad, but is simply confused. When he speaks, he is speaking coherently. I do not see any sensory, motor, or coordination deficits. I feel it is more likely this represents an encephalopathic process from the strain of the myocardial infarction, sedation medications and procedure. It is certainly possible he has had a stroke in the temporal lobe. But even if that were the case, there is no acute intervention to offer as he is 5 hours out from the last known normal. He has been placed on Plavix and aspirin because of the stent which will also help with stroke prevention. I appreciate being involved in his care and will be happy to reevaluate. I discussed my findings with the family at length. ASHISH TAO MD DR: LI/mike JOB#: [id number] / [id number] [facility] , Cardiology ASHISH TAO MD
[2016-05-07] MEDS: ASPIRIN ENTERIC COATED 325 MG TABLET.DR. PO SCH (09:56)
[2016-05-07] MEDS: CLOPIDOGREL BISULFATE 75 MG TABLET PO SCH (09:56)
[2016-05-07] MEDS: MULTIVITAMIN with MINERAL TABLET. PO SCH (09:56)
[2016-05-07] MEDS: TAMSULOSIN 0.4 MG CAP.ER.24H. PO SCH (09:56)
[2016-05-07] MEDS: METOPROLOL TART IMMED RELEASE 25 MG TABLET PO SCH ×2 (09:57→21:04)
--- NOTE | 2016-05-07 11:23 | PDOC ---
PROGRESS NOTES Subjective Subjective Somnolent, comfortable and no acute distress Objective Objective Vital Signs Date Time Temp Pulse Resp B/P Pulse Ox O2 Delivery O2 Flow Rate FiO2 05/07/16 10:56 99.2 72 18 105/51 98 Room Air 99.2 05/07/16 05:00 2.0 Intake and Output 05/07/16 07:00 Intake Total 922 ml Output Total 2360 ml Balance -1438 ml Intake Oral 120 ml IV Total 802 ml Output Urine Total 2360 ml Physical Exam Abdomen: Soft, No tenderness, Other (truncal obesity) Heart: Regular rate Extremities: No cyanosis, Other (1+ bilateral LE pitting edema) General: No acute distress HEENT: Atraumatic, Mucous membr. moist/pink Lungs: Clear to auscultation, Normal air movement Neck: No JVD Assessment Assessment 1. Acute NSTEMI in a patient with history of coronary artery bypass surgery: Cardiac catheterization yesterday showed patent TRENT to LAD, SVG to OM and patent SVG to RCA with [place] posterolateral branch showing 90% stenosis that was successfully treated with drug-eluting stent. Telemetry did not show any significant arrhythmias. 3 Echo showed LVEF of 55%. Continue dual antiplatelet therapy. 2. HTN: Well-controlled. 3. HLP: intolerant to statin, LDL at goal, continue niacin 4. Hypothyroidism: TSH at 1.55. on replacement. 5. Tobaccoism: 25 pk yr. smoking cessation 6. DM2: insulin dependent. Per PCP Plan Plan of Care Problems Medical Problems: (1) Chest pain Status: Acute Comment Review of Relevant I have reviewed the following items rebecca (where applicable) has been applied. Labs Laboratory Tests Test 05/06/16 11:50 05/06/16 16:40 05/06/16 18:38 05/06/16 19:15 Sodium Level 140mmol/L (136-145) Potassium Level 4.3mmol/L (3.5-5.1) Chloride Level 106mmol/L (98-107) Carbon Dioxide Level 28mmol/L (21-32) Anion Gap 6 (6-14) Blood Urea Nitrogen 27mg/dL (8-26) Creatinine 1.2mg/dL (0.7-1.3) Estimated GFR (Cockcroft-Gault) 59.7 BUN/Creatinine Ratio 23 (6-20) Glucose Level 96mg/dL (70-99) Calcium Level 8.7mg/dL (8.5-10.1) Magnesium Level 2.2mg/dL (1.8-2.4) Total Bilirubin 0.3mg/dL (0.2-1.0) Aspartate Amino Transf (AST/SGOT) 38U/L (15-37) Alanine Aminotransferase (ALT/SGPT) 37U/L (16-63) Alkaline Phosphatase 68U/L (46-116) Creatine Kinase 262U/L (39-308) Creatine Kinase MB (Mass) 22.5ng/mL (0.0-3.6) Creatine Kinase MB Relative Index 8.6% (0-4) Troponin I Quantitative 3.775ng/mL (0.000-0.055) 7.231ng/mL (0.000-0.055) Total Protein 6.7g/dL (6.4-8.2) Albumin 3.2g/dL (3.4-5.0) Albumin/Globulin Ratio 0.9 (1.0-1.7) Thyroid Stimulating Hormone (TSH) 1.917uIU/mL (0.358-3.74) Nasal Screen MRSA (PCR) Positive (Negative) Glucose (Fingerstick) 74mg/dL (70-99) Test 05/06/16 21:22 05/07/16 03:50 05/07/16 08:09 Glucose (Fingerstick) 78mg/dL (70-99) 70mg/dL (70-99) White Blood Count 8.9x10^3/uL (4.0-11.0) Red Blood Count 3.20x10^6/uL (4.30-5.70) Hemoglobin 9.9g/dL (13.0-17.5) Hematocrit 28.9% (39.0-53.0) Mean Corpuscular Volume 90fL (79-100) Mean Corpuscular Hemoglobin 31pg (25-35) Mean Corpuscular Hemoglobin Concent 34g/dL (31-37) Red Cell Distribution Width 13.6% (11.5-14.5) Platelet Count 217x10^3/uL (140-400) Neutrophils (%) (Auto) 80% (31-73) Lymphocytes (%) (Auto) 9% (24-48) Monocytes (%) (Auto) 10% (0-9) Eosinophils (%) (Auto) 0% (0-3) Basophils (%) (Auto) 0% (0-3) Neutrophils # (Auto) 7.1x10^3uL (1.8-7.7) Lymphocytes # (Auto) 0.8x10^3/uL (1.0-4.8) Monocytes # (Auto) 0.9x10^3/uL (0.0-1.1) Eosinophils # (Auto) 0.0x10^3/uL (0.0-0.7) Basophils # (Auto) 0.0x10^3/uL (0.0-0.2) Sodium Level 139mmol/L (136-145) Potassium Level 3.8mmol/L (3.5-5.1) Chloride Level 106mmol/L (98-107) Carbon Dioxide Level 23mmol/L (21-32) Anion Gap 10 (6-14) Blood Urea Nitrogen 24mg/dL (8-26) Creatinine 1.3mg/dL (0.7-1.3) Estimated GFR (Cockcroft-Gault) 54.4 Glucose Level 62mg/dL (70-99) Calcium Level 8.3mg/dL (8.5-10.1) Troponin I Quantitative 10.519ng/mL (0.000-0.055) Triglycerides Level 38mg/dL (0-150) Cholesterol Level 101mg/dL (0-200) LDL Cholesterol, Calculated 51mg/dL (0-100) VLDL Cholesterol, Calculated 8mg/dL (0-40) HDL Cholesterol 42mg/dL (40-60) Cholesterol/HDL Ratio 2.4 Medications Current Medications Acetaminophen (Tylenol) 650 mg PRN Q6HRS PRN PO MILD PAIN / TEMP Last administered on 05/06/16t 23:44; Start 05/06/16 at 15:15; Stop 05/07/16 at 10:30 ; Status DC Acetaminophen (Tylenol) 650 mg PRN Q6HRS PRN PO MILD PAIN / TEMP; Start at 16:15 Albuterol Sulfate 2.5 mg 2.5 mg PRN Q4HRS PRN NEB SHORTNESS OF BREATH; Start at 15:45 Aspirin (Ecotrin) 81 mg DAILYWBKFT PO ; Start 05/07/16 at 08:00; Stop 05/07/16 at 08:00; Status DC Aspirin (Ecotrin) 325 mg DAILYWBKFT PO Last administered on 05/07/16 09:56; Start 05/07/16 at 08:00 Bivalirudin (Angiomax) 250 mg 1X ONCE IV Last administered on 05/06/16 15:06 ; Start 05/06/16 at 14:15; Stop 05/06/16 at 14:16; Status DC Bivalirudin (Angiomax) 250 mg STK-MED ONCE IV ; Start 05/06/16 at 14:04; Stop at 14:05; Status DC Clopidogrel Bisulfate (Plavix) 75 mg DAILYWBKFT PO Last administered on 09:56; Start 05/07/16 at 08:00 Clopidogrel Bisulfate (Plavix) 75 mg STK-MED ONCE .ROUTE ; Start 05/06/16 at 15: 01; Stop 05/06/16 at 15:02; Status DC Clopidogrel Bisulfate (Plavix) 600 mg 1X ONCE PO Last administered on 15:08; Start 05/06/16 at 15:15; Stop 05/06/16 at 15:17; Status DC Dextrose 12.5 gm PRN Q15MIN PRN IV SEE COMMENTS; Start 05/06/16 at 14:00 Fentanyl Citrate (Fentanyl 5ml Vial) 250 mcg 1X ONCE IV Last administered on 15:07; Start 05/06/16 at 14:00; Stop 05/06/16 at 14:01; Status DC Fentanyl Citrate (Fentanyl 5ml Vial) 250 mcg STK-MED ONCE .ROUTE ; Start at 13:39; Stop 05/06/16 at 13:40; Status DC Flumazenil (Romazicon) 0.1 mg 1X ONCE IV Last administered on 05/06/16 17:15 ; Start 05/06/16 at 17:15; Stop 05/06/16 at 17:16; Status DC Haloperidol Lactate (Haldol) 1 mg PRN Q4HRS PRN IVP AGITATION Last administered on 05/06/16 19:22; Start 05/06/16 at 19:15 Haloperidol Lactate (Haldol) 2 mg PRN Q4HRS PRN IVP AGITATION Last administered on 05/07/16 04:49; Start 05/06/16 at 19:15 Heparin Sodium (Porcine) 2,500 unit 1X ONCE IART Last administered on 15:06; Start 05/06/16 at 14:00; Stop 05/06/16 at 14:01; Status DC Heparin Sodium (Porcine) 10,000 unit STK-MED ONCE .ROUTE ; Start 05/06/16 at 13: 39; Stop 05/06/16 at 13:40; Status DC Heparin Sodium/ Sodium Chloride 500 ml @ As Directed STK-MED ONCE .ROUTE ; Start 05/06/16 at 13:07; Stop 05/06/16 at 13:08; Status DC Heparin Sodium/ Sodium Chloride 1,000 unit 1X ONCE IART Last administered on 14:00; Start 05/06/16 at 14:00; Stop 05/06/16 at 14:01; Status DC Hydralazine HCl (Apresoline) 10 mg PRN Q4HRS PRN IVP ELEVATED BP, SEE COMMENTS ; Start 05/06/16 at 14:00 Insulin Aspart (Novolog) 0-9 UNITS TIDWMEALS SQ ; Start 05/06/16 at 17:00 Insulin Aspart (Novolog) 8 units TIDAC SQ ; Start 05/06/16 at 16:30 Insulin Detemir (Levemir) 25 units QHS SQ ; Start 05/06/16 at 21:00 Iodixanol (Visipaque 320) 100 ml 1X ONCE IART Last administered on 05/06/16 15:07; Start 05/06/16 at 14:00; Stop 05/06/16 at 14:01; Status DC Iodixanol (Visipaque 320) 100 ml STK-MED ONCE .ROUTE ; Start 05/06/16 at 13:07; Stop 05/06/16 at 13:08; Status DC Iodixanol (Visipaque 320) 100 ml STK-MED ONCE .ROUTE ; Start 05/06/16 at 13:17; Stop 05/06/16 at 13:18; Status DC Iodixanol (Visipaque 320) 100 ml STK-MED ONCE .ROUTE ; Start 05/06/16 at 14:05; Stop 05/06/16 at 14:06; Status DC Levothyroxine Sodium (Synthroid) 125 mcg DAILY07 PO Last administered on 08:10; Start 05/07/16 at 07:00 Lidocaine HCl 20 ml 1X ONCE IJ Last administered on 05/06/16 15:07; Start at 14:00; Stop 05/06/16 at 14:01; Status DC Lidocaine HCl 20 ml STK-MED ONCE .ROUTE ; Start 05/06/16 at 13:07; Stop at 13:08; Status DC Metoprolol Tartrate (Lopressor) 12.5 mg BID PO Last administered on 05/07/16 09:57; Start 05/06/16 at 21:00 Midazolam HCl (Versed) 5 mg 1X ONCE IV Last administered on 05/06/16 15:06; Start 05/06/16 at 14:00; Stop 05/06/16 at 14:01; Status DC Midazolam HCl (Versed) 5 mg STK-MED ONCE .ROUTE ; Start 05/06/16 at 13:39; Stop 05/06/16 at 13:40; Status DC Morphine Sulfate 2 mg PRN Q2HR PRN IV MILD-MOD PAIN; Start 05/06/16 at 15:15 Morphine Sulfate 4 mg PRN Q2HR PRN IV SEVERE PAIN; Start 05/06/16 at 15:15 Multivitamins/ Calcium (Thera M Plus) 1 tab DAILY PO Last administered on 09:56; Start 05/07/16 at 09:00 Naloxone HCl (Narcan) 0.4 mg 1X ONCE IV Last administered on 05/06/16 17:15; Start 05/06/16 at 17:15; Stop 05/06/16 at 17:16; Status DC Naloxone HCl (Narcan) 0.4 mg STK-MED ONCE .ROUTE ; Start 05/06/16 at 16:54; Stop 05/06/16 at 16:55; Status DC Niacin (Slo-Niacin) 250 mg QHS PO ; Start 05/06/16 at 21:00 Nitroglycerin (Nitroglycerin) 200 mcg 1X ONCE IART Last administered on 15:08; Start 05/06/16 at 14:00; Stop 05/06/16 at 14:01; Status DC Nitroglycerin (Nitroglycerin) 200 mcg STK-MED ONCE .ROUTE ; Start 05/06/16 at 13 :39; Stop 05/06/16 at 13:40; Status DC Nitroglycerin (Nitrostat) 0.4 mg PRN Q5MIN PRN SL CHEST PAIN; Start 05/06/16 at 16:15 Ondansetron HCl (Zofran) 4 mg PRN Q6HRS PRN IV NAUSEA/VOMITING; Start 05/06/16 at 15:15 Pneumococcal Polyvalent Vaccine (Do NOT chart on this placeholder) 1 each PRN 1X PRN MC SEE COMMENTS; Start 05/06/16 at 18:15 Sodium Chloride (Iv Sodium Chloride 0.45%) 1,000 ml @ 75 mls/hr [id number] IV ; Start 05/06/16 at 16:03 Tamsulosin HCl (Flomax) 0.4 mg DAILY PO Last administered on 05/07/16 09:56; Start 05/07/16 at 09:00 Verapamil HCl (Verapamil) 2.5 mg 1X ONCE IART Last administered on 05/06/16 15:08; Start 05/06/16 at 14:00; Stop 05/06/16 at 14:01; Status DC Verapamil HCl (Verapamil) 5 mg STK-MED ONCE .ROUTE ; Start 05/06/16 at 13:39; Stop 05/06/16 at 13:40; Status DC Vitals/I & O Vital Sign - Last 24 Hours 05/06/16 05/06/16 05/06/16 05/06/16 11:38 12:02 12:22 12:42 Temp 98.2 98.2 Pulse 66 64 64 64 B/P 158/70 145/67 145/67 160/68 Pulse Ox 99 100 100 100 O2 Delivery Nasal Cannula Nasal Cannula Nasal Cannula Nasal Cannula O2 Flow Rate 2 2 2 2 05/06/16 05/06/16 05/06/16 05/06/16 14:57 15:07 15:08 15:30 Temp 97.2 97.2 Pulse 69 75 72 Resp 14 14 13 B/P 140/57 Pulse Ox 95 94 O2 Delivery Room Air Room Air Nasal Cannula O2 Flow Rate 2.0 05/06/16 05/06/16 05/06/16 05/06/16 15:45 17:00 18:00 19:00 Temp 98.3 98.3 Pulse 66 68 86 Resp 13 20 26 B/P 161/77 142/76 151/69 Pulse Ox 97 O2 Delivery Nasal Cannula Nasal Cannula Nasal Cannula O2 Flow Rate 2.0 2.0 2.0 05/06/16 05/06/16 05/06/16 05/06/16 20:00 21:00 21:53 22:00 Pulse 85 94 73 73 Resp 29 B/P 141/64 150/72 150/72 126/51 Pulse Ox 98 97 97 O2 Delivery Room Air Nasal Cannula 05/06/16 05/07/16 05/07/16 05/07/16 23:00 00:00 01:00 02:00 Temp 100.8 100.8 Pulse 93 94 90 98 B/P 141/81 137/56 103/47 103/47 Pulse Ox 96 96 96 93 O2 Delivery Room Air Nasal Cannula Room Air Room Air 05/07/16 05/07/16 05/07/16 05/07/16 03:00 04:00 04:02 05:00 Temp 98.8 98.8 Pulse 85 75 75 B/P 126/51 107/51 101/57 Pulse Ox 94 98 92 O2 Delivery Room Air Room Air Room Air Nasal Cannula O2 Flow Rate 2.0 05/07/16 05/07/16 05/07/16 05/07/16 06:00 07:00 08:00 09:00 Temp 99.0 99.3 99.0 99.0 99.3 99.0 Pulse 80 74 75 73 Resp 18 14 B/P 87/48 137/68 111/50 107/53 Pulse Ox 96 99 97 99 O2 Delivery Room Air Room Air Room Air Room Air 05/07/16 05/07/16 05/07/16 09:57 10:00 10:56 Temp 98.0 99.2 98.0 99.2 Pulse 72 75 72 Resp 16 18 B/P 111/55 111/55 105/51 Pulse Ox 97 98 O2 Delivery Room Air Room Air Intake and Output 05/06/16 05/06/16 05/07/16 15:00 23:00 07:00 Intake Total 20 ml 902 ml Output Total 1775 ml 585 ml Balance -1755 ml 317 ml LOWELL QUACH MD May 07, 2016 11:23
--- NOTE | 2016-05-07 13:20 | PDOC ---
PROGRESS NOTES Chief Complaint Chief Complaint - NSTEMI with hx CAD with stents and CABG - Encephalopathy, post-operative - DM - HTN - Hyperlipidemia - GERD - Anemia - Tobaccoism - Hypothyroidism - Hearing loss - Constipation - Diabetic retinopathy - Cataract - BPH History of Present Illness History of Present Illness 71 year old male seen in ICU with and 1:1 sitter present in room at time of exam. Patient was sedated, but he did awake briefly. relates that the patient has been combative and not thinking clearly following his procedure. Also reported that the patient seemed very unstable while on his feet earlier as he attempted to use the restroom. He does appear to be resting comfortably while sedated. Vitals Vitals Vital Signs Date Time Temp Pulse Resp B/P Pulse Ox O2 Delivery O2 Flow Rate FiO2 05/07/16 13:01 99.0 67 16 114/57 98 Room Air 99.0 05/07/16 05:00 2.0 Physical Exam General: No acute distress, Other (Sedated) Heart: Regular rate, Other (No gallops or rubs) Lungs: Clear Abdomen: Soft, No tenderness, Other (truncal obesity) Extremities: No cyanosis, Other (1+ bilateral LE pitting edema) Skin: No breakdown, No significant lesion Labs LABS Laboratory Tests Test 05/06/16 16:40 05/06/16 18:38 05/06/16 19:15 05/06/16 21:22 Nasal Screen MRSA (PCR) Positive (Negative) Glucose (Fingerstick) 74mg/dL (70-99) 78mg/dL (70-99) Troponin I Quantitative 7.231ng/mL (0.000-0.055) Test 05/07/16 03:50 05/07/16 08:09 05/07/16 12:04 White Blood Count 8.9x10^3/uL (4.0-11.0) Red Blood Count 3.20x10^6/uL (4.30-5.70) Hemoglobin 9.9g/dL (13.0-17.5) Hematocrit 28.9% (39.0-53.0) Mean Corpuscular Volume 90fL (79-100) Mean Corpuscular Hemoglobin 31pg (25-35) Mean Corpuscular Hemoglobin Concent 34g/dL (31-37) Red Cell Distribution Width 13.6% (11.5-14.5) Platelet Count 217x10^3/uL (140-400) Neutrophils (%) (Auto) 80% (31-73) Lymphocytes (%) (Auto) 9% (24-48) Monocytes (%) (Auto) 10% (0-9) Eosinophils (%) (Auto) 0% (0-3) Basophils (%) (Auto) 0% (0-3) Neutrophils # (Auto) 7.1x10^3uL (1.8-7.7) Lymphocytes # (Auto) 0.8x10^3/uL (1.0-4.8) Monocytes # (Auto) 0.9x10^3/uL (0.0-1.1) Eosinophils # (Auto) 0.0x10^3/uL (0.0-0.7) Basophils # (Auto) 0.0x10^3/uL (0.0-0.2) Sodium Level 139mmol/L (136-145) Potassium Level 3.8mmol/L (3.5-5.1) Chloride Level 106mmol/L (98-107) Carbon Dioxide Level 23mmol/L (21-32) Anion Gap 10 (6-14) Blood Urea Nitrogen 24mg/dL (8-26) Creatinine 1.3mg/dL (0.7-1.3) Estimated GFR (Cockcroft-Gault) 54.4 Glucose Level 62mg/dL (70-99) Calcium Level 8.3mg/dL (8.5-10.1) Troponin I Quantitative 10.519ng/mL (0.000-0.055) Triglycerides Level 38mg/dL (0-150) Cholesterol Level 101mg/dL (0-200) LDL Cholesterol, Calculated 51mg/dL (0-100) VLDL Cholesterol, Calculated 8mg/dL (0-40) HDL Cholesterol 42mg/dL (40-60) Cholesterol/HDL Ratio 2.4 Glucose (Fingerstick) 70mg/dL (70-99) 80mg/dL (70-99) Review of Systems Review of Systems Weak Unstable on feet Assessment and Plan Assessmemt and Plan Assessment: - NSTEMI with hx CAD with stents and CABG - Encephalopathy, post-operative - DM - HTN - Hyperlipidemia - GERD - Anemia - Tobaccoism - Hypothyroidism - Hearing loss - Constipation - Diabetic retinopathy - Cataract - BPH Plan: - Patient appears stable enough for transfer to floor from ICU when bed available - Appreciate neurology input. Will monitor for resolution of encephalopathy - Monitor for hypoglycemia - SNU eval ordered - Recheck labs in a.m. - PT/OT when appropriate - Appreciate subspecialty input Problems: Comment Review of Relevant I have reviewed the following items rebecca (where applicable) has been applied. Labs Laboratory Tests Test 05/06/16 11:50 05/06/16 16:40 05/06/16 18:38 05/06/16 19:15 Sodium Level 140mmol/L (136-145) Potassium Level 4.3mmol/L (3.5-5.1) Chloride Level 106mmol/L (98-107) Carbon Dioxide Level 28mmol/L (21-32) Anion Gap 6 (6-14) Blood Urea Nitrogen 27mg/dL (8-26) Creatinine 1.2mg/dL (0.7-1.3) Estimated GFR (Cockcroft-Gault) 59.7 BUN/Creatinine Ratio 23 (6-20) Glucose Level 96mg/dL (70-99) Calcium Level 8.7mg/dL (8.5-10.1) Magnesium Level 2.2mg/dL (1.8-2.4) Total Bilirubin 0.3mg/dL (0.2-1.0) Aspartate Amino Transf (AST/SGOT) 38U/L (15-37) Alanine Aminotransferase (ALT/SGPT) 37U/L (16-63) Alkaline Phosphatase 68U/L (46-116) Creatine Kinase 262U/L (39-308) Creatine Kinase MB (Mass) 22.5ng/mL (0.0-3.6) Creatine Kinase MB Relative Index 8.6% (0-4) Troponin I Quantitative 3.775ng/mL (0.000-0.055) 7.231ng/mL (0.000-0.055) Total Protein 6.7g/dL (6.4-8.2) Albumin 3.2g/dL (3.4-5.0) Albumin/Globulin Ratio 0.9 (1.0-1.7) Thyroid Stimulating Hormone (TSH) 1.917uIU/mL (0.358-3.74) Nasal Screen MRSA (PCR) Positive (Negative) Glucose (Fingerstick) 74mg/dL (70-99) Test 05/06/16 21:22 05/07/16 03:50 05/07/16 08:09 05/07/16 12:04 Glucose (Fingerstick) 78mg/dL (70-99) 70mg/dL (70-99) 80mg/dL (70-99) White Blood Count 8.9x10^3/uL (4.0-11.0) Red Blood Count 3.20x10^6/uL (4.30-5.70) Hemoglobin 9.9g/dL (13.0-17.5) Hematocrit 28.9% (39.0-53.0) Mean Corpuscular Volume 90fL (79-100) Mean Corpuscular Hemoglobin 31pg (25-35) Mean Corpuscular Hemoglobin Concent 34g/dL (31-37) Red Cell Distribution Width 13.6% (11.5-14.5) Platelet Count 217x10^3/uL (140-400) Neutrophils (%) (Auto) 80% (31-73) Lymphocytes (%) (Auto) 9% (24-48) Monocytes (%) (Auto) 10% (0-9) Eosinophils (%) (Auto) 0% (0-3) Basophils (%) (Auto) 0% (0-3) Neutrophils # (Auto) 7.1x10^3uL (1.8-7.7) Lymphocytes # (Auto) 0.8x10^3/uL (1.0-4.8) Monocytes # (Auto) 0.9x10^3/uL (0.0-1.1) Eosinophils # (Auto) 0.0x10^3/uL (0.0-0.7) Basophils # (Auto) 0.0x10^3/uL (0.0-0.2) Sodium Level 139mmol/L (136-145) Potassium Level 3.8mmol/L (3.5-5.1) Chloride Level 106mmol/L (98-107) Carbon Dioxide Level 23mmol/L (21-32) Anion Gap 10 (6-14) Blood Urea Nitrogen 24mg/dL (8-26) Creatinine 1.3mg/dL (0.7-1.3) Estimated GFR (Cockcroft-Gault) 54.4 Glucose Level 62mg/dL (70-99) Calcium Level 8.3mg/dL (8.5-10.1) Troponin I Quantitative 10.519ng/mL (0.000-0.055) Triglycerides Level 38mg/dL (0-150) Cholesterol Level 101mg/dL (0-200) LDL Cholesterol, Calculated 51mg/dL (0-100) VLDL Cholesterol, Calculated 8mg/dL (0-40) HDL Cholesterol 42mg/dL (40-60) Cholesterol/HDL Ratio 2.4 Laboratory Tests Test 05/06/16 16:40 05/06/16 18:38 05/06/16 19:15 05/06/16 21:22 Nasal Screen MRSA (PCR) Positive (Negative) Glucose (Fingerstick) 74mg/dL (70-99) 78mg/dL (70-99) Troponin I Quantitative 7.231ng/mL (0.000-0.055) Test 05/07/16 03:50 05/07/16 08:09 05/07/16 12:04 White Blood Count 8.9x10^3/uL (4.0-11.0) Red Blood Count 3.20x10^6/uL (4.30-5.70) Hemoglobin 9.9g/dL (13.0-17.5) Hematocrit 28.9% (39.0-53.0) Mean Corpuscular Volume 90fL (79-100) Mean Corpuscular Hemoglobin 31pg (25-35) Mean Corpuscular Hemoglobin Concent 34g/dL (31-37) Red Cell Distribution Width 13.6% (11.5-14.5) Platelet Count 217x10^3/uL (140-400) Neutrophils (%) (Auto) 80% (31-73) Lymphocytes (%) (Auto) 9% (24-48) Monocytes (%) (Auto) 10% (0-9) Eosinophils (%) (Auto) 0% (0-3) Basophils (%) (Auto) 0% (0-3) Neutrophils # (Auto) 7.1x10^3uL (1.8-7.7) Lymphocytes # (Auto) 0.8x10^3/uL (1.0-4.8) Monocytes # (Auto) 0.9x10^3/uL (0.0-1.1) Eosinophils # (Auto) 0.0x10^3/uL (0.0-0.7) Basophils # (Auto) 0.0x10^3/uL (0.0-0.2) Sodium Level 139mmol/L (136-145) Potassium Level 3.8mmol/L (3.5-5.1) Chloride Level 106mmol/L (98-107) Carbon Dioxide Level 23mmol/L (21-32) Anion Gap 10 (6-14) Blood Urea Nitrogen 24mg/dL (8-26) Creatinine 1.3mg/dL (0.7-1.3) Estimated GFR (Cockcroft-Gault) 54.4 Glucose Level 62mg/dL (70-99) Calcium Level 8.3mg/dL (8.5-10.1) Troponin I Quantitative 10.519ng/mL (0.000-0.055) Triglycerides Level 38mg/dL (0-150) Cholesterol Level 101mg/dL (0-200) LDL Cholesterol, Calculated 51mg/dL (0-100) VLDL Cholesterol, Calculated 8mg/dL (0-40) HDL Cholesterol 42mg/dL (40-60) Cholesterol/HDL Ratio 2.4 Glucose (Fingerstick) 70mg/dL (70-99) 80mg/dL (70-99) Medications Current Medications Heparin Sodium/ Sodium Chloride 500 ml @ As Directed STK-MED ONCE .ROUTE ; Start 05/06/16 at 13:07; Stop 05/06/16 at 13:08; Status DC Lidocaine HCl 20 ml STK-MED ONCE .ROUTE ; Start 05/06/16 at 13:07; Stop at 13:08; Status DC Iodixanol (Visipaque 320) 100 ml STK-MED ONCE .ROUTE ; Start 05/06/16 at 13:07; Stop 05/06/16 at 13:08; Status DC Iodixanol (Visipaque 320) 100 ml STK-MED ONCE .ROUTE ; Start 05/06/16 at 13:17; Stop 05/06/16 at 13:18; Status DC Nitroglycerin (Nitroglycerin) 200 mcg STK-MED ONCE .ROUTE ; Start 05/06/16 at 13 :39; Stop 05/06/16 at 13:40; Status DC Verapamil HCl (Verapamil) 5 mg STK-MED ONCE .ROUTE ; Start 05/06/16 at 13:39; Stop 05/06/16 at 13:40; Status DC Heparin Sodium (Porcine) 10,000 unit STK-MED ONCE .ROUTE ; Start 05/06/16 at 13: 39; Stop 05/06/16 at 13:40; Status DC Midazolam HCl (Versed) 5 mg STK-MED ONCE .ROUTE ; Start 05/06/16 at 13:39; Stop 05/06/16 at 13:40; Status DC Fentanyl Citrate (Fentanyl 5ml Vial) 250 mcg STK-MED ONCE .ROUTE ; Start at 13:39; Stop 05/06/16 at 13:40; Status DC Nitroglycerin (Nitroglycerin) 200 mcg 1X ONCE IART Last administered on 15:08; Start 05/06/16 at 14:00; Stop 05/06/16 at 14:01; Status DC Verapamil HCl (Verapamil) 2.5 mg 1X ONCE IART Last administered on 05/06/16 15:08; Start 05/06/16 at 14:00; Stop 05/06/16 at 14:01; Status DC Heparin Sodium (Porcine) 2,500 unit 1X ONCE IART Last administered on 15:06; Start 05/06/16 at 14:00; Stop 05/06/16 at 14:01; Status DC Heparin Sodium/ Sodium Chloride 1,000 unit 1X ONCE IART Last administered on 14:00; Start 05/06/16 at 14:00; Stop 05/06/16 at 14:01; Status DC Midazolam HCl (Versed) 5 mg 1X ONCE IV Last administered on 05/06/16 15:06; Start 05/06/16 at 14:00; Stop 05/06/16 at 14:01; Status DC Fentanyl Citrate (Fentanyl 5ml Vial) 250 mcg 1X ONCE IV Last administered on 15:07; Start 05/06/16 at 14:00; Stop 05/06/16 at 14:01; Status DC Iodixanol (Visipaque 320) 100 ml 1X ONCE IART Last administered on 05/06/16 15:07; Start 05/06/16 at 14:00; Stop 05/06/16 at 14:01; Status DC Lidocaine HCl 20 ml 1X ONCE IJ Last administered on 05/06/16 15:07; Start at 14:00; Stop 05/06/16 at 14:01; Status DC Hydralazine HCl (Apresoline) 10 mg PRN Q4HRS PRN IVP ELEVATED BP, SEE COMMENTS ; Start 05/06/16 at 14:00 Insulin Aspart (Novolog) 0-9 UNITS TIDWMEALS SQ ; Start 05/06/16 at 17:00 Dextrose 12.5 gm PRN Q15MIN PRN IV SEE COMMENTS; Start 05/06/16 at 14:00 Bivalirudin (Angiomax) 250 mg STK-MED ONCE IV ; Start 05/06/16 at 14:04; Stop at 14:05; Status DC Iodixanol (Visipaque 320) 100 ml STK-MED ONCE .ROUTE ; Start 05/06/16 at 14:05; Stop 05/06/16 at 14:06; Status DC Bivalirudin (Angiomax) 250 mg 1X ONCE IV Last administered on 05/06/16 15:06 ; Start 05/06/16 at 14:15; Stop 05/06/16 at 14:16; Status DC Clopidogrel Bisulfate (Plavix) 75 mg STK-MED ONCE .ROUTE ; Start 05/06/16 at 15: 01; Stop 05/06/16 at 15:02; Status DC Clopidogrel Bisulfate (Plavix) 600 mg 1X ONCE PO Last administered on 15:08; Start 05/06/16 at 15:15; Stop 05/06/16 at 15:17; Status DC Acetaminophen (Tylenol) 650 mg PRN Q6HRS PRN PO MILD PAIN / TEMP Last administered on 05/06/16 23:44; Start 05/06/16 at 15:15; Stop 05/07/16 at 10:30 ; Status DC Ondansetron HCl (Zofran) 4 mg PRN Q6HRS PRN IV NAUSEA/VOMITING; Start 05/06/16 at 15:15 Morphine Sulfate 2 mg PRN Q2HR PRN IV MILD-MOD PAIN; Start 05/06/16 at 15:15 Morphine Sulfate 4 mg PRN Q2HR PRN IV SEVERE PAIN; Start 05/06/16 at 15:15 Aspirin (Ecotrin) 81 mg DAILYWBKFT PO ; Start 05/07/16 at 08:00; Stop 05/07/16 at 08:00; Status DC Levothyroxine Sodium (Synthroid) 125 mcg DAILY07 PO Last administered on 08:10; Start 05/07/16 at 07:00 Tamsulosin HCl (Flomax) 0.4 mg DAILY PO Last administered on 05/07/16 09:56; Start 05/07/16 at 09:00 Multivitamins/ Calcium (Thera M Plus) 1 tab DAILY PO Last administered on 09:56; Start 05/07/16 at 09:00 Niacin (Slo-Niacin) 250 mg QHS PO ; Start 05/06/16 at 21:00 Insulin Detemir (Levemir) 25 units QHS SQ ; Start 05/06/16 at 21:00 Insulin Aspart (Novolog) 8 units TIDAC SQ ; Start 05/06/16 at 16:30 Albuterol Sulfate 2.5 mg 2.5 mg PRN Q4HRS PRN NEB SHORTNESS OF BREATH; Start at 15:45 Sodium Chloride (Iv Sodium Chloride 0.45%) 1,000 ml @ 75 mls/hr [id number] IV ; Start 05/06/16 at 16:03 Aspirin (Ecotrin) 325 mg DAILYWBKFT PO Last administered on 05/07/16 09:56; Start 05/07/16 at 08:00 Clopidogrel Bisulfate (Plavix) 75 mg DAILYWBKFT PO Last administered on 09:56; Start 05/07/16 at 08:00 Acetaminophen (Tylenol) 650 mg PRN Q6HRS PRN PO MILD PAIN / TEMP; Start at 16:15 Nitroglycerin (Nitrostat) 0.4 mg PRN Q5MIN PRN SL CHEST PAIN; Start 05/06/16 at 16:15 Metoprolol Tartrate (Lopressor) 12.5 mg BID PO Last administered on 05/07/16 09:57; Start 05/06/16 at 21:00 Naloxone HCl (Narcan) 0.4 mg STK-MED ONCE .ROUTE ; Start 05/06/16 at 16:54; Stop 05/06/16 at 16:55; Status DC Naloxone HCl (Narcan) 0.4 mg 1X ONCE IV Last administered on 05/06/16 17:15; Start 05/06/16 at 17:15; Stop 05/06/16 at 17:16; Status DC Flumazenil (Romazicon) 0.1 mg 1X ONCE IV Last administered on 05/06/16 17:15 ; Start 05/06/16 at 17:15; Stop 05/06/16 at 17:16; Status DC Pneumococcal Polyvalent Vaccine (Do NOT chart on this placeholder) 1 each PRN 1X PRN MC SEE COMMENTS; Start 05/06/16 at 18:15 Haloperidol Lactate (Haldol) 1 mg PRN Q4HRS PRN IVP AGITATION Last administered on 05/06/16 19:22; Start 05/06/16 at 19:15 Haloperidol Lactate (Haldol) 2 mg PRN Q4HRS PRN IVP AGITATION Last administered on 05/07/16 04:49; Start 05/06/16 at 19:15 Active Scripts Active Reported Tamsulosin Hcl 0.4 Mg Cap.er.24h 0.4 Mg PO DAILY Niacin 100 Mg Tablet 100 Mg PO TID Multivitamins (Multivitamin) 1 Each Tablet 1 Each PO DAILY Levothyroxine Sodium 125 Mcg Tablet 125 Mcg PO DAILYAC Lantus (Insulin Glargine,Hum.rec.anlog) 100 Unit/1 Ml Vial 1 Unit SQ QHS Novolog Flexpen (Insulin Aspart) 100 Unit/1 Ml Insuln.pen 1 Unit SQ TIDAC Aspir 81 (Aspirin) 81 Mg Tablet.dr 81 Mg PO DAILY Vitals/I & O Vital Sign - Last 24 Hours 05/06/16 05/06/16 05/06/16 05/06/16 14:57 15:07 15:08 15:30 Temp 97.2 97.2 Pulse 69 75 72 Resp 14 14 13 B/P 140/57 Pulse Ox 95 94 O2 Delivery Room Air Room Air Nasal Cannula O2 Flow Rate 2.0 105/06/16 05/06/16 05/06/16 15:45 17:00 18:00 19:00 Temp 98.3 98.3 Pulse 66 68 86 Resp 13 20 26 B/P 161/77 142/76 151/69 Pulse Ox 97 O2 Delivery Nasal Cannula Nasal Cannula Nasal Cannula O2 Flow Rate 2.0 2.0 2.0 05/06/16 05/06/16 05/06/16 05/06/16 20:00 21:00 21:53 22:00 Pulse 85 94 73 73 Resp 29 B/P 141/64 150/72 150/72 126/51 Pulse Ox 98 97 97 O2 Delivery Room Air Nasal Cannula 05/06/16 05/07/16 05/07/16 05/07/16 23:00 00:00 01:00 02:00 Temp 100.8 100.8 Pulse 93 94 90 98 B/P 141/81 137/56 103/47 103/47 Pulse Ox 96 96 96 93 O2 Delivery Room Air Nasal Cannula Room Air Room Air 05/07/16 05/07/16 05/07/16 05/07/16 03:00 04:00 04:02 05:00 Temp 98.8 98.8 Pulse 85 75 75 B/P 126/51 107/51 101/57 Pulse Ox 94 98 92 O2 Delivery Room Air Room Air Room Air Nasal Cannula O2 Flow Rate 2.0 05/07/16 05/07/16 05/07/16 05/07/16 06:00 07:00 08:00 08:00 Temp 99.0 99.3 99.0 99.3 Pulse 80 74 75 Resp 18 B/P 87/48 137/68 111/50 Pulse Ox 96 99 97 O2 Delivery Room Air Room Air Room Air Room Air 05/07/16 05/07/16 05/07/16 05/07/16 09:00 09:57 10:00 10:56 Temp 99.0 98.0 99.2 99.0 98.0 99.2 Pulse 73 72 75 72 Resp 14 16 18 B/P 107/53 111/55 111/55 105/51 Pulse Ox 99 97 98 O2 Delivery Room Air Room Air Room Air 05/07/16 05/07/16 05/07/16 12:00 12:01 13:01 Temp 98.6 99.0 98.6 99.0 Pulse 76 67 Resp 18 16 B/P 126/48 114/57 Pulse Ox 98 98 O2 Delivery Room Air Room Air Room Air Intake and Output 05/06/16 05/06/16 05/07/16 15:00 23:00 07:00 Intake Total 20 ml 902 ml Output Total 1775 ml 585 ml Balance -1755 ml 317 ml DOMINIC LÓPEZ III DO May 07, 2016 13:20
--- NOTE | 2016-05-07 20:37 | PDOC ---
PROGRESS NOTES Assessment Encephalopathy The encephalopathy from yesterday has largely resolved. He is now able to focus and interact with words. He is able to respond and follow commands. Neurologic exam was nonfocal and does not suggest stroke. CT scan of the head had movement artifact but no obvious intracranial finding. Further neurologic investigation is not needed. Subjective I feel better. I was confused last night. I felt I had to go to the bathroom. Objective Vital Signs Date Time Temp Pulse Resp B/P Pulse Ox O2 Delivery O2 Flow Rate FiO2 05/07/16 18:54 97.9 70 16 136/62 98 Room Air 97.9 05/07/16 05:00 2.0 Intake and Output 05/07/16 07:00 Intake Total 922 ml Output Total 2360 ml Balance -1438 ml Intake Oral 120 ml IV Total 802 ml Output Urine Total 2360 ml PHYSICAL EXAM He was alert, awake and cooperative. Speech was fluent and clear. He was oriented. He was able to follow commands and respond appropriately. Cranial nerves II through XII are intact. Muscle bulk, tone and power was normal. Sensation was intact to light touch and pain. Coordination was intact with finger to nose and fine motor movements. Review of Relevant I have reviewed the following items rebecca (where applicable) has been applied. Labs Laboratory Tests Test 05/06/16 11:50 05/06/16 16:40 05/06/16 18:38 05/06/16 19:15 Sodium Level 140mmol/L (136-145) Potassium Level 4.3mmol/L (3.5-5.1) Chloride Level 106mmol/L (98-107) Carbon Dioxide Level 28mmol/L (21-32) Anion Gap 6 (6-14) Blood Urea Nitrogen 27mg/dL (8-26) Creatinine 1.2mg/dL (0.7-1.3) Estimated GFR (Cockcroft-Gault) 59.7 BUN/Creatinine Ratio 23 (6-20) Glucose Level 96mg/dL (70-99) Calcium Level 8.7mg/dL (8.5-10.1) Magnesium Level 2.2mg/dL (1.8-2.4) Total Bilirubin 0.3mg/dL (0.2-1.0) Aspartate Amino Transf (AST/SGOT) 38U/L (15-37) Alanine Aminotransferase (ALT/SGPT) 37U/L (16-63) Alkaline Phosphatase 68U/L (46-116) Creatine Kinase 262U/L (39-308) Creatine Kinase MB (Mass) 22.5ng/mL (0.0-3.6) Creatine Kinase MB Relative Index 8.6% (0-4) Troponin I Quantitative 3.775ng/mL (0.000-0.055) 7.231ng/mL (0.000-0.055) Total Protein 6.7g/dL (6.4-8.2) Albumin 3.2g/dL (3.4-5.0) Albumin/Globulin Ratio 0.9 (1.0-1.7) Thyroid Stimulating Hormone (TSH) 1.917uIU/mL (0.358-3.74) Nasal Screen MRSA (PCR) Positive (Negative) Glucose (Fingerstick) 74mg/dL (70-99) Test 05/06/16 21:22 05/07/16 03:50 05/07/16 08:09 05/07/16 12:04 Glucose (Fingerstick) 78mg/dL (70-99) 70mg/dL (70-99) 80mg/dL (70-99) White Blood Count 8.9x10^3/uL (4.0-11.0) Red Blood Count 3.20x10^6/uL (4.30-5.70) Hemoglobin 9.9g/dL (13.0-17.5) Hematocrit 28.9% (39.0-53.0) Mean Corpuscular Volume 90fL (79-100) Mean Corpuscular Hemoglobin 31pg (25-35) Mean Corpuscular Hemoglobin Concent 34g/dL (31-37) Red Cell Distribution Width 13.6% (11.5-14.5) Platelet Count 217x10^3/uL (140-400) Neutrophils (%) (Auto) 80% (31-73) Lymphocytes (%) (Auto) 9% (24-48) Monocytes (%) (Auto) 10% (0-9) Eosinophils (%) (Auto) 0% (0-3) Basophils (%) (Auto) 0% (0-3) Neutrophils # (Auto) 7.1x10^3uL (1.8-7.7) Lymphocytes # (Auto) 0.8x10^3/uL (1.0-4.8) Monocytes # (Auto) 0.9x10^3/uL (0.0-1.1) Eosinophils # (Auto) 0.0x10^3/uL (0.0-0.7) Basophils # (Auto) 0.0x10^3/uL (0.0-0.2) Sodium Level 139mmol/L (136-145) Potassium Level 3.8mmol/L (3.5-5.1) Chloride Level 106mmol/L (98-107) Carbon Dioxide Level 23mmol/L (21-32) Anion Gap 10 (6-14) Blood Urea Nitrogen 24mg/dL (8-26) Creatinine 1.3mg/dL (0.7-1.3) Estimated GFR (Cockcroft-Gault) 54.4 Glucose Level 62mg/dL (70-99) Calcium Level 8.3mg/dL (8.5-10.1) Troponin I Quantitative 10.519ng/mL (0.000-0.055) Triglycerides Level 38mg/dL (0-150) Cholesterol Level 101mg/dL (0-200) LDL Cholesterol, Calculated 51mg/dL (0-100) VLDL Cholesterol, Calculated 8mg/dL (0-40) HDL Cholesterol 42mg/dL (40-60) Cholesterol/HDL Ratio 2.4 Test 05/07/16 16:07 Glucose (Fingerstick) 117mg/dL (70-99) Laboratory Tests Test 05/06/16 21:22 05/07/16 03:50 05/07/16 08:09 05/07/16 12:04 Glucose (Fingerstick) 78mg/dL (70-99) 70mg/dL (70-99) 80mg/dL (70-99) White Blood Count 8.9x10^3/uL (4.0-11.0) Red Blood Count 3.20x10^6/uL (4.30-5.70) Hemoglobin 9.9g/dL (13.0-17.5) Hematocrit 28.9% (39.0-53.0) Mean Corpuscular Volume 90fL (79-100) Mean Corpuscular Hemoglobin 31pg (25-35) Mean Corpuscular Hemoglobin Concent 34g/dL (31-37) Red Cell Distribution Width 13.6% (11.5-14.5) Platelet Count 217x10^3/uL (140-400) Neutrophils (%) (Auto) 80% (31-73) Lymphocytes (%) (Auto) 9% (24-48) Monocytes (%) (Auto) 10% (0-9) Eosinophils (%) (Auto) 0% (0-3) Basophils (%) (Auto) 0% (0-3) Neutrophils # (Auto) 7.1x10^3uL (1.8-7.7) Lymphocytes # (Auto) 0.8x10^3/uL (1.0-4.8) Monocytes # (Auto) 0.9x10^3/uL (0.0-1.1) Eosinophils # (Auto) 0.0x10^3/uL (0.0-0.7) Basophils # (Auto) 0.0x10^3/uL (0.0-0.2) Sodium Level 139mmol/L (136-145) Potassium Level 3.8mmol/L (3.5-5.1) Chloride Level 106mmol/L (98-107) Carbon Dioxide Level 23mmol/L (21-32) Anion Gap 10 (6-14) Blood Urea Nitrogen 24mg/dL (8-26) Creatinine 1.3mg/dL (0.7-1.3) Estimated GFR (Cockcroft-Gault) 54.4 Glucose Level 62mg/dL (70-99) Calcium Level 8.3mg/dL (8.5-10.1) Troponin I Quantitative 10.519ng/mL (0.000-0.055) Triglycerides Level 38mg/dL (0-150) Cholesterol Level 101mg/dL (0-200) LDL Cholesterol, Calculated 51mg/dL (0-100) VLDL Cholesterol, Calculated 8mg/dL (0-40) HDL Cholesterol 42mg/dL (40-60) Cholesterol/HDL Ratio 2.4 Test 05/07/16 16:07 Glucose (Fingerstick) 117mg/dL (70-99) Medications Current Medications Heparin Sodium/ Sodium Chloride 500 ml @ As Directed STK-MED ONCE .ROUTE ; Start 05/06/16 at 13:07; Stop 05/06/16 at 13:08; Status DC Lidocaine HCl 20 ml STK-MED ONCE .ROUTE ; Start 05/06/16 at 13:07; Stop at 13:08; Status DC Iodixanol (Visipaque 320) 100 ml STK-MED ONCE .ROUTE ; Start 05/06/16 at 13:07; Stop 05/06/16 at 13:08; Status DC Iodixanol (Visipaque 320) 100 ml STK-MED ONCE .ROUTE ; Start 05/06/16 at 13:17; Stop 05/06/16 at 13:18; Status DC Nitroglycerin (Nitroglycerin) 200 mcg STK-MED ONCE .ROUTE ; Start 05/06/16 at 13 :39; Stop 05/06/16 at 13:40; Status DC Verapamil HCl (Verapamil) 5 mg STK-MED ONCE .ROUTE ; Start 05/06/16 at 13:39; Stop 05/06/16 at 13:40; Status DC Heparin Sodium (Porcine) 10,000 unit STK-MED ONCE .ROUTE ; Start 05/06/16 at 13: 39; Stop 05/06/16 at 13:40; Status DC Midazolam HCl (Versed) 5 mg STK-MED ONCE .ROUTE ; Start 05/06/16 at 13:39; Stop 05/06/16 at 13:40; Status DC Fentanyl Citrate (Fentanyl 5ml Vial) 250 mcg STK-MED ONCE .ROUTE ; Start at 13:39; Stop 05/06/16 at 13:40; Status DC Nitroglycerin (Nitroglycerin) 200 mcg 1X ONCE IART Last administered on 15:08; Start 05/06/16 at 14:00; Stop 05/06/16 at 14:01; Status DC Verapamil HCl (Verapamil) 2.5 mg 1X ONCE IART Last administered on 05/06/16 15:08; Start 05/06/16 at 14:00; Stop 05/06/16 at 14:01; Status DC Heparin Sodium (Porcine) 2,500 unit 1X ONCE IART Last administered on 15:06; Start 05/06/16 at 14:00; Stop 05/06/16 at 14:01; Status DC Heparin Sodium/ Sodium Chloride 1,000 unit 1X ONCE IART Last administered on 14:00; Start 05/06/16 at 14:00; Stop 05/06/16 at 14:01; Status DC Midazolam HCl (Versed) 5 mg 1X ONCE IV Last administered on 05/06/16 15:06; Start 05/06/16 at 14:00; Stop 05/06/16 at 14:01; Status DC Fentanyl Citrate (Fentanyl 5ml Vial) 250 mcg 1X ONCE IV Last administered on 15:07; Start 05/06/16 at 14:00; Stop 05/06/16 at 14:01; Status DC Iodixanol (Visipaque 320) 100 ml 1X ONCE IART Last administered on 05/06/16 15:07; Start 05/06/16 at 14:00; Stop 05/06/16 at 14:01; Status DC Lidocaine HCl 20 ml 1X ONCE IJ Last administered on 05/06/16 15:07; Start at 14:00; Stop 05/06/16 at 14:01; Status DC Hydralazine HCl (Apresoline) 10 mg PRN Q4HRS PRN IVP ELEVATED BP, SEE COMMENTS ; Start 05/06/16 at 14:00 Insulin Aspart (Novolog) 0-9 UNITS TIDWMEALS SQ ; Start 05/06/16 at 17:00 Dextrose 12.5 gm PRN Q15MIN PRN IV SEE COMMENTS; Start 05/06/16 at 14:00 Bivalirudin (Angiomax) 250 mg STK-MED ONCE IV ; Start 05/06/16 at 14:04; Stop at 14:05; Status DC Iodixanol (Visipaque 320) 100 ml STK-MED ONCE .ROUTE ; Start 05/06/16 at 14:05; Stop 05/06/16 at 14:06; Status DC Bivalirudin (Angiomax) 250 mg 1X ONCE IV Last administered on 05/06/16 15:06 ; Start 05/06/16 at 14:15; Stop 05/06/16 at 14:16; Status DC Clopidogrel Bisulfate (Plavix) 75 mg STK-MED ONCE .ROUTE ; Start 05/06/16 at 15: 01; Stop 05/06/16 at 15:02; Status DC Clopidogrel Bisulfate (Plavix) 600 mg 1X ONCE PO Last administered on 15:08; Start 05/06/16 at 15:15; Stop 05/06/16 at 15:17; Status DC Acetaminophen (Tylenol) 650 mg PRN Q6HRS PRN PO MILD PAIN / TEMP Last administered on 05/06/16 23:44; Start 05/06/16 at 15:15; Stop 05/07/16 at 10:30 ; Status DC Ondansetron HCl (Zofran) 4 mg PRN Q6HRS PRN IV NAUSEA/VOMITING; Start 05/06/16 at 15:15 Morphine Sulfate 2 mg PRN Q2HR PRN IV MILD-MOD PAIN; Start 05/06/16 at 15:15 Morphine Sulfate 4 mg PRN Q2HR PRN IV SEVERE PAIN; Start 05/06/16 at 15:15 Aspirin (Ecotrin) 81 mg DAILYWBKFT PO ; Start 05/07/16 at 08:00; Stop 05/07/16 at 08:00; Status DC Levothyroxine Sodium (Synthroid) 125 mcg DAILY07 PO Last administered on 08:10; Start 05/07/16 at 07:00 Tamsulosin HCl (Flomax) 0.4 mg DAILY PO Last administered on 05/07/16 09:56; Start 05/07/16 at 09:00 Multivitamins/ Calcium (Thera M Plus) 1 tab DAILY PO Last administered on 09:56; Start 05/07/16 at 09:00 Niacin (Slo-Niacin) 250 mg QHS PO ; Start 05/06/16 at 21:00 Insulin Detemir (Levemir) 25 units QHS SQ ; Start 05/06/16 at 21:00 Insulin Aspart (Novolog) 8 units TIDAC SQ ; Start 05/06/16 at 16:30 Albuterol Sulfate 2.5 mg 2.5 mg PRN Q4HRS PRN NEB SHORTNESS OF BREATH; Start at 15:45 Sodium Chloride (Iv Sodium Chloride 0.45%) 1,000 ml @ 75 mls/hr [id number] IV ; Start 05/06/16 at 16:03 Aspirin (Ecotrin) 325 mg DAILYWBKFT PO Last administered on 05/07/16 09:56; Start 05/07/16 at 08:00 Clopidogrel Bisulfate (Plavix) 75 mg DAILYWBKFT PO Last administered on 09:56; Start 05/07/16 at 08:00 Acetaminophen (Tylenol) 650 mg PRN Q6HRS PRN PO MILD PAIN / TEMP; Start at 16:15 Nitroglycerin (Nitrostat) 0.4 mg PRN Q5MIN PRN SL CHEST PAIN; Start 05/06/16 at 16:15 Metoprolol Tartrate (Lopressor) 12.5 mg BID PO Last administered on 05/07/16 09:57; Start 05/06/16 at 21:00 Naloxone HCl (Narcan) 0.4 mg STK-MED ONCE .ROUTE ; Start 05/06/16 at 16:54; Stop 05/06/16 at 16:55; Status DC Naloxone HCl (Narcan) 0.4 mg 1X ONCE IV Last administered on 05/06/16 17:15; Start 05/06/16 at 17:15; Stop 05/06/16 at 17:16; Status DC Flumazenil (Romazicon) 0.1 mg 1X ONCE IV Last administered on 05/06/16 17:15 ; Start 05/06/16 at 17:15; Stop 05/06/16 at 17:16; Status DC Pneumococcal Polyvalent Vaccine (Do NOT chart on this placeholder) 1 each PRN 1X PRN MC SEE COMMENTS; Start 05/06/16 at 18:15 Haloperidol Lactate (Haldol) 1 mg PRN Q4HRS PRN IVP AGITATION Last administered on 05/06/16 19:22; Start 05/06/16 at 19:15 Haloperidol Lactate (Haldol) 2 mg PRN Q4HRS PRN IVP AGITATION Last administered on 05/07/16 04:49; Start 05/06/16 at 19:15 Active Scripts Active Reported Tamsulosin Hcl 0.4 Mg Cap.er.24h 0.4 Mg PO DAILY Niacin 100 Mg Tablet 100 Mg PO TID Multivitamins (Multivitamin) 1 Each Tablet 1 Each PO DAILY Levothyroxine Sodium 125 Mcg Tablet 125 Mcg PO DAILYAC Lantus (Insulin Glargine,Hum.rec.anlog) 100 Unit/1 Ml Vial 1 Unit SQ QHS Novolog Flexpen (Insulin Aspart) 100 Unit/1 Ml Insuln.pen 1 Unit SQ TIDAC Aspir 81 (Aspirin) 81 Mg Tablet.dr 81 Mg PO DAILY Vitals/I & O Vital Sign - Last 24 Hours 05/06/16 05/06/16 05/06/16 05/06/16 21:00 21:53 22:00 23:00 Temp 100.8 100.8 Pulse 94 73 73 93 Resp 29 B/P 150/72 150/72 126/51 141/81 Pulse Ox 97 97 96 O2 Delivery Room Air Nasal Cannula Room Air 05/07/16 05/07/16 05/07/16 05/07/16 00:00 01:00 02:00 03:00 Pulse 94 90 98 85 B/P 137/56 103/47 103/47 126/51 Pulse Ox 96 96 93 94 O2 Delivery Nasal Cannula Room Air Room Air Room Air 05/07/16 05/07/16 05/07/16 05/07/16 04:00 04:02 05:00 06:00 Temp 98.8 98.8 Pulse 75 75 80 B/P 107/51 101/57 87/48 Pulse Ox 98 92 96 O2 Delivery Room Air Room Air Nasal Cannula Room Air O2 Flow Rate 2.0 05/07/16 05/07/16 05/07/16 05/07/16 07:00 08:00 08:00 09:00 Temp 99.0 99.3 99.0 99.0 99.3 99.0 Pulse 74 75 73 Resp 18 14 B/P 137/68 111/50 107/53 Pulse Ox 99 97 99 O2 Delivery Room Air Room Air Room Air Room Air 05/07/16 05/07/16 05/07/16 05/07/16 09:57 10:00 10:56 12:00 Temp 98.0 99.2 98.0 99.2 Pulse 72 75 72 Resp 16 18 B/P 111/55 111/55 105/51 Pulse Ox 97 98 O2 Delivery Room Air Room Air Room Air 05/07/16 05/07/16 05/07/16 05/07/16 12:01 13:01 14:03 15:00 Temp 98.6 99.0 97.9 98.1 98.6 99.0 97.9 98.1 Pulse 76 67 70 74 Resp 18 18 B/P 126/48 114/57 128/64 102/52 Pulse Ox 98 98 98 99 O2 Delivery Room Air Room Air Room Air Room Air 05/07/16 05/07/16 05/07/16 05/07/16 16:00 16:00 16:58 17:57 Temp 99.1 98.2 97.8 99.1 98.2 97.8 Pulse 79 68 70 Resp 18 B/P 93/56 123/61 110/56 Pulse Ox 100 98 98 O2 Delivery Room Air Room Air Room Air Room Air 05/07/16 18:54 Temp 97.9 97.9 Pulse 70 Resp 16 B/P 136/62 Pulse Ox 98 O2 Delivery Room Air Intake and Output 05/06/16 05/06/16 05/07/16 15:00 23:00 07:00 Intake Total 20 ml 902 ml Output Total 1775 ml 585 ml Balance -1755 ml 317 ml ASHISH TAO MD May 07, 2016 20:37
[2016-05-07] MEDS: INSULIN DETEMIR 300 UNITS/3 ML INSULN.PEN. SQ SCH (21:00)
[2016-05-07] MEDS: NIACIN ER 250 MG TABLET.ER PO SCH (21:03)
[2016-05-08] VITALS (15 sets, daily range): BP systolic 91–166; BP diastolic 45–76
[2016-05-08] MEDS: INSULIN ASPART 300 UNITS/3 ML INSULN.PEN SQ SCH ×5 (07:12→17:00)
[2016-05-08] MEDS: LEVOTHYROXINE 125 MCG TABLET PO SCH (07:12)
[2016-05-08 08:14] LABS: BASO % 0 % (0-3); EOS % 1 % (0-3); HEMATOCRIT 31.1 % (39.0-53.0); HEMOGLOBIN 10.4 g/dL (13.0-17.5); LYMPH # 0.8 x10^3/uL (1.0-4.8); LYMPH % 9 % (24-48); MEAN CORPUSCULAR HEMOGLOBIN 30 pg (25-35); MEAN CORPUSCULAR HGB CONC 34 g/dL (31-37); MEAN CORPUSCULAR VOLUME 90 fL (79-100); MONO % 12 % (0-9); NEUT % 78 % (31-73); PLATELET COUNT 214 x10^3/uL (140-400); RED BLOOD COUNT 3.45 x10^6/uL (4.30-5.70); RED CELL DISTRIBUTION WIDTH 13.9 % (11.5-14.5); WHITE BLOOD COUNT 8.9 x10^3/uL (4.0-11.0)
[2016-05-08 08:27] LABS: CALCIUM 8.4 mg/dL (8.5-10.1); CREATININE 1.3 mg/dL (0.7-1.3); GFR 54.4; POTASSIUM 3.6 mmol/L (3.5-5.1)
[2016-05-08] MEDS: ASPIRIN ENTERIC COATED 325 MG TABLET.DR. PO SCH (08:53)
[2016-05-08] MEDS: CLOPIDOGREL BISULFATE 75 MG TABLET PO SCH (08:53)
[2016-05-08] MEDS: METOPROLOL TART IMMED RELEASE 25 MG TABLET PO SCH ×2 (08:53→21:00)
[2016-05-08] MEDS: TAMSULOSIN 0.4 MG CAP.ER.24H. PO SCH (08:53)
[2016-05-08] MEDS: MULTIVITAMIN with MINERAL TABLET. PO SCH (08:53)
--- NOTE | 2016-05-08 12:19 | PDOC ---
PROGRESS NOTES Subjective Subjective Mental status slightly improved. Objective Objective Vital Signs Date Time Temp Pulse Resp B/P Pulse Ox O2 Delivery O2 Flow Rate FiO2 05/08/16 11:00 76 18 125/63 100 Room Air 05/08/16 08:00 98.5 98.5 Intake and Output 05/08/16 07:00 Intake Total 1620 ml Output Total 2340 ml Balance -720 ml Intake Oral 1620 ml Output Urine Total 2340 ml Physical Exam Abdomen: Soft, No tenderness, Other (truncal obesity) Heart: Regular rate, Other (No gallops or rubs) Extremities: No cyanosis, Other (1+ bilateral LE pitting edema) General: No acute distress, Other (Sedated) HEENT: Atraumatic, Mucous membr. moist/pink Lungs: Clear to auscultation, Normal air movement Neck: No JVD Skin: No breakdown, No significant lesion Assessment Assessment 1. Acute NSTEMI in a patient with history of coronary artery bypass surgery: Cardiac catheterization showed patent TRENT to LAD, SVG to OM and patent SVG to RCA with nikolski posterolateral branch showing 90% stenosis that was successfully treated with drug-eluting stent. Telemetry did not show any significant arrhythmias. 2D Echo showed LVEF of 55%. Continue dual antiplatelet therapy. 2. Mental status changes most probably encephalopathy from sedatives used during procedure per neurology team. Stroke ruled out. 3. HTN: Well-controlled. 4. HLP: intolerant to statin, LDL at goal, continue niacin 5. Hypothyroidism: TSH at 1.55. on replacement. 6. Tobaccoism: 25 pk yr. smoking cessation 7. DM2: insulin dependent. Per PCP Plan Plan of Care Problems Medical Problems: (1) Chest pain Status: Acute Comment Review of Relevant I have reviewed the following items rebecca (where applicable) has been applied. Labs Laboratory Tests Test 05/07/16 16:07 05/07/16 21:01 05/08/16 07:54 Glucose (Fingerstick) 117mg/dL (70-99) 80mg/dL (70-99) White Blood Count 8.9x10^3/uL (4.0-11.0) Red Blood Count 3.45x10^6/uL (4.30-5.70) Hemoglobin 10.4g/dL (13.0-17.5) Hematocrit 31.1% (39.0-53.0) Mean Corpuscular Volume 90fL (79-100) Mean Corpuscular Hemoglobin 30pg (25-35) Mean Corpuscular Hemoglobin Concent 34g/dL (31-37) Red Cell Distribution Width 13.9% (11.5-14.5) Platelet Count 214x10^3/uL (140-400) Neutrophils (%) (Auto) 78% (31-73) Lymphocytes (%) (Auto) 9% (24-48) Monocytes (%) (Auto) 12% (0-9) Eosinophils (%) (Auto) 1% (0-3) Basophils (%) (Auto) 0% (0-3) Neutrophils # (Auto) 6.9x10^3uL (1.8-7.7) Lymphocytes # (Auto) 0.8x10^3/uL (1.0-4.8) Monocytes # (Auto) 1.1x10^3/uL (0.0-1.1) Eosinophils # (Auto) 0.1x10^3/uL (0.0-0.7) Basophils # (Auto) 0.0x10^3/uL (0.0-0.2) Sodium Level 137mmol/L (136-145) Potassium Level 3.6mmol/L (3.5-5.1) Chloride Level 104mmol/L (98-107) Carbon Dioxide Level 24mmol/L (21-32) Anion Gap 9 (6-14) Blood Urea Nitrogen 19mg/dL (8-26) Creatinine 1.3mg/dL (0.7-1.3) Estimated GFR (Cockcroft-Gault) 54.4 Glucose Level 87mg/dL (70-99) Calcium Level 8.4mg/dL (8.5-10.1) Vitals/I & O Vital Sign - Last 24 Hours 05/07/16 05/07/16 05/07/16 05/07/16 13:01 14:03 15:00 16:00 Temp 99.0 97.9 98.1 99.0 97.9 98.1 Pulse 67 70 74 Resp 16 18 18 B/P 114/57 128/64 102/52 Pulse Ox 98 98 99 O2 Delivery Room Air Room Air Room Air Room Air 1/21/05/07/16 05/07/16 05/07/16 16:00 16:58 17:57 18:54 Temp 99.1 98.2 97.8 97.9 99.1 98.2 97.8 97.9 Pulse 79 68 70 70 Resp 18 18 18 16 B/P 93/56 123/61 110/56 136/62 Pulse Ox 100 98 98 98 O2 Delivery Room Air Room Air Room Air Room Air 05/07/16 05/07/16 05/07/16 05/07/16 20:00 20:00 21:00 21:04 Temp 99.2 99.2 Pulse 100 96 97 Resp 24 B/P 118/59 118/59 118/59 Pulse Ox 94 96 O2 Delivery Room Air Room Air Room Air 05/07/16 05/07/16 05/08/16 05/08/16 22:00 23:00 00:00 00:00 Temp 100.5 100.5 Pulse 89 84 84 Resp B/P 172/82 147/76 158/76 Pulse Ox 96 92 94 O2 Delivery Room Air Room Air Room Air Room Air 05/08/16 05/08/16 05/08/16 05/08/16 01:00 02:00 03:00 04:00 Temp 99.0 99.0 Pulse 83 83 81 77 Resp 19 B/P 126/59 108/73 117/51 91/74 Pulse Ox 92 95 92 92 O2 Delivery Room Air Room Air Room Air Room Air 05/08/16 05/08/16 05/08/16 05/08/16 04:00 05:00 06:00 07:00 Pulse 84 81 82 Resp 20 B/P 107/45 114/56 125/53 Pulse Ox 92 92 93 O2 Delivery Room Air Room Air Room Air Room Air 05/08/16 05/08/16 05/08/16 05/08/16 08:00 08:00 08:53 09:00 Temp 98.5 98.5 Pulse 80 84 82 Resp 18 15 B/P 141/50 137/65 137/65 Pulse Ox 100 100 O2 Delivery Room Air Room Air Room Air 05/08/16 05/08/16 10:00 11:00 Pulse 84 76 Resp 18 18 B/P 152/74 125/63 Pulse Ox 100 100 O2 Delivery Room Air Room Air Intake and Output 05/07/16 05/07/16 05/08/16 15:00 23:00 07:00 Intake Total 620 ml 920 ml 80 ml Output Total 595 ml 810 ml 935 ml Balance 25 ml 110 ml -855 ml LOWELL QUACH MD May 08, 2016 12:19
--- NOTE | 2016-05-08 15:27 | PDOC ---
PROGRESS NOTES Assessment Problems 1. Chest pain-he received a stent. 2. Encephalopathy-this was likely related to the stress of the procedure as well as the medications. He is improving even better today than yesterday. He is fully oriented and clear. His behavior is appropriate. Plan 1. No further neurologic investigation is needed at this time. Please reconsult neurology if we can be of further service. Subjective I feel fine. I'm not in any pain. Objective Vital Signs Date Time Temp Pulse Resp B/P Pulse Ox O2 Delivery O2 Flow Rate FiO2 05/08/16 12:00 100.3 72 20 117/58 100 Nasal Cannula 2.0 100.3 Intake and Output 05/08/16 07:00 Intake Total 1620 ml Output Total 2340 ml Balance -720 ml Intake Oral 1620 ml Output Urine Total 2340 ml PHYSICAL EXAM He was lying in the reclining chair asleep. He awoke with stimulation and was able to respond appropriately. The eyes were conjugate and face symmetric. Speech was fluent and clear. He was oriented. Movements were symmetric in the arms and legs and well coordinated. Review of Relevant I have reviewed the following items rebecca (where applicable) has been applied. Labs Laboratory Tests Test 05/06/16 16:40 05/06/16 18:38 05/06/16 19:15 05/06/16 21:22 Nasal Screen MRSA (PCR) Positive (Negative) Glucose (Fingerstick) 74mg/dL (70-99) 78mg/dL (70-99) Troponin I Quantitative 7.231ng/mL (0.000-0.055) Test 05/07/16 03:50 05/07/16 08:09 05/07/16 12:04 05/07/16 16:07 White Blood Count 8.9x10^3/uL (4.0-11.0) Red Blood Count 3.20x10^6/uL (4.30-5.70) Hemoglobin 9.9g/dL (13.0-17.5) Hematocrit 28.9% (39.0-53.0) Mean Corpuscular Volume 90fL (79-100) Mean Corpuscular Hemoglobin 31pg (25-35) Mean Corpuscular Hemoglobin Concent 34g/dL (31-37) Red Cell Distribution Width 13.6% (11.5-14.5) Platelet Count 217x10^3/uL (140-400) Neutrophils (%) (Auto) 80% (31-73) Lymphocytes (%) (Auto) 9% (24-48) Monocytes (%) (Auto) 10% (0-9) Eosinophils (%) (Auto) 0% (0-3) Basophils (%) (Auto) 0% (0-3) Neutrophils # (Auto) 7.1x10^3uL (1.8-7.7) Lymphocytes # (Auto) 0.8x10^3/uL (1.0-4.8) Monocytes # (Auto) 0.9x10^3/uL (0.0-1.1) Eosinophils # (Auto) 0.0x10^3/uL (0.0-0.7) Basophils # (Auto) 0.0x10^3/uL (0.0-0.2) Sodium Level 139mmol/L (136-145) Potassium Level 3.8mmol/L (3.5-5.1) Chloride Level 106mmol/L (98-107) Carbon Dioxide Level 23mmol/L (21-32) Anion Gap 10 (6-14) Blood Urea Nitrogen 24mg/dL (8-26) Creatinine 1.3mg/dL (0.7-1.3) Estimated GFR (Cockcroft-Gault) 54.4 Glucose Level 62mg/dL (70-99) Hemoglobin A1c 6.2% (4.8-5.6) Calcium Level 8.3mg/dL (8.5-10.1) Troponin I Quantitative 10.519ng/mL (0.000-0.055) Triglycerides Level 38mg/dL (0-150) Cholesterol Level 101mg/dL (0-200) LDL Cholesterol, Calculated 51mg/dL (0-100) VLDL Cholesterol, Calculated 8mg/dL (0-40) HDL Cholesterol 42mg/dL (40-60) Cholesterol/HDL Ratio 2.4 Glucose (Fingerstick) 70mg/dL (70-99) 80mg/dL (70-99) 117mg/dL (70-99) Test 05/07/16 21:01 05/08/16 07:54 Glucose (Fingerstick) 80mg/dL (70-99) White Blood Count 8.9x10^3/uL (4.0-11.0) Red Blood Count 3.45x10^6/uL (4.30-5.70) Hemoglobin 10.4g/dL (13.0-17.5) Hematocrit 31.1% (39.0-53.0) Mean Corpuscular Volume 90fL (79-100) Mean Corpuscular Hemoglobin 30pg (25-35) Mean Corpuscular Hemoglobin Concent 34g/dL (31-37) Red Cell Distribution Width 13.9% (11.5-14.5) Platelet Count 214x10^3/uL (140-400) Neutrophils (%) (Auto) 78% (31-73) Lymphocytes (%) (Auto) 9% (24-48) Monocytes (%) (Auto) 12% (0-9) Eosinophils (%) (Auto) 1% (0-3) Basophils (%) (Auto) 0% (0-3) Neutrophils # (Auto) 6.9x10^3uL (1.8-7.7) Lymphocytes # (Auto) 0.8x10^3/uL (1.0-4.8) Monocytes # (Auto) 1.1x10^3/uL (0.0-1.1) Eosinophils # (Auto) 0.1x10^3/uL (0.0-0.7) Basophils # (Auto) 0.0x10^3/uL (0.0-0.2) Sodium Level 137mmol/L (136-145) Potassium Level 3.6mmol/L (3.5-5.1) Chloride Level 104mmol/L (98-107) Carbon Dioxide Level 24mmol/L (21-32) Anion Gap 9 (6-14) Blood Urea Nitrogen 19mg/dL (8-26) Creatinine 1.3mg/dL (0.7-1.3) Estimated GFR (Cockcroft-Gault) 54.4 Glucose Level 87mg/dL (70-99) Calcium Level 8.4mg/dL (8.5-10.1) Laboratory Tests Test 05/07/16 16:07 05/07/16 21:01 05/08/16 07:54 Glucose (Fingerstick) 117mg/dL (70-99) 80mg/dL (70-99) White Blood Count 8.9x10^3/uL (4.0-11.0) Red Blood Count 3.45x10^6/uL (4.30-5.70) Hemoglobin 10.4g/dL (13.0-17.5) Hematocrit 31.1% (39.0-53.0) Mean Corpuscular Volume 90fL (79-100) Mean Corpuscular Hemoglobin 30pg (25-35) Mean Corpuscular Hemoglobin Concent 34g/dL (31-37) Red Cell Distribution Width 13.9% (11.5-14.5) Platelet Count 214x10^3/uL (140-400) Neutrophils (%) (Auto) 78% (31-73) Lymphocytes (%) (Auto) 9% (24-48) Monocytes (%) (Auto) 12% (0-9) Eosinophils (%) (Auto) 1% (0-3) Basophils (%) (Auto) 0% (0-3) Neutrophils # (Auto) 6.9x10^3uL (1.8-7.7) Lymphocytes # (Auto) 0.8x10^3/uL (1.0-4.8) Monocytes # (Auto) 1.1x10^3/uL (0.0-1.1) Eosinophils # (Auto) 0.1x10^3/uL (0.0-0.7) Basophils # (Auto) 0.0x10^3/uL (0.0-0.2) Sodium Level 137mmol/L (136-145) Potassium Level 3.6mmol/L (3.5-5.1) Chloride Level 104mmol/L (98-107) Carbon Dioxide Level 24mmol/L (21-32) Anion Gap 9 (6-14) Blood Urea Nitrogen 19mg/dL (8-26) Creatinine 1.3mg/dL (0.7-1.3) Estimated GFR (Cockcroft-Gault) 54.4 Glucose Level 87mg/dL (70-99) Calcium Level 8.4mg/dL (8.5-10.1) Medications Current Medications Heparin Sodium/ Sodium Chloride 500 ml @ As Directed STK-MED ONCE .ROUTE ; Start 05/06/16 at 13:07; Stop 05/06/16 at 13:08; Status DC Lidocaine HCl 20 ml STK-MED ONCE .ROUTE ; Start 05/06/16 at 13:07; Stop at 13:08; Status DC Iodixanol (Visipaque 320) 100 ml STK-MED ONCE .ROUTE ; Start 05/06/16 at 13:07; Stop 05/06/16 at 13:08; Status DC Iodixanol (Visipaque 320) 100 ml STK-MED ONCE .ROUTE ; Start 05/06/16 at 13:17; Stop 05/06/16 at 13:18; Status DC Nitroglycerin (Nitroglycerin) 200 mcg STK-MED ONCE .ROUTE ; Start 05/06/16 at 13 :39; Stop 05/06/16 at 13:40; Status DC Verapamil HCl (Verapamil) 5 mg STK-MED ONCE .ROUTE ; Start 05/06/16 at 13:39; Stop 05/06/16 at 13:40; Status DC Heparin Sodium (Porcine) 10,000 unit STK-MED ONCE .ROUTE ; Start 05/06/16 at 13: 39; Stop 05/06/16 at 13:40; Status DC Midazolam HCl (Versed) 5 mg STK-MED ONCE .ROUTE ; Start 05/06/16 at 13:39; Stop 05/06/16 at 13:40; Status DC Fentanyl Citrate (Fentanyl 5ml Vial) 250 mcg STK-MED ONCE .ROUTE ; Start at 13:39; Stop 05/06/16 at 13:40; Status DC Nitroglycerin (Nitroglycerin) 200 mcg 1X ONCE IART Last administered on 15:08; Start 05/06/16 at 14:00; Stop 05/06/16 at 14:01; Status DC Verapamil HCl (Verapamil) 2.5 mg 1X ONCE IART Last administered on 05/06/16 15:08; Start 05/06/16 at 14:00; Stop 05/06/16 at 14:01; Status DC Heparin Sodium (Porcine) 2,500 unit 1X ONCE IART Last administered on 15:06; Start 05/06/16 at 14:00; Stop 05/06/16 at 14:01; Status DC Heparin Sodium/ Sodium Chloride 1,000 unit 1X ONCE IART Last administered on 14:00; Start 05/06/16 at 14:00; Stop 05/06/16 at 14:01; Status DC Midazolam HCl (Versed) 5 mg 1X ONCE IV Last administered on 05/06/16 15:06; Start 05/06/16 at 14:00; Stop 05/06/16 at 14:01; Status DC Fentanyl Citrate (Fentanyl 5ml Vial) 250 mcg 1X ONCE IV Last administered on 15:07; Start 05/06/16 at 14:00; Stop 05/06/16 at 14:01; Status DC Iodixanol (Visipaque 320) 100 ml 1X ONCE IART Last administered on 05/06/16 15:07; Start 05/06/16 at 14:00; Stop 05/06/16 at 14:01; Status DC Lidocaine HCl 20 ml 1X ONCE IJ Last administered on 05/06/16 15:07; Start at 14:00; Stop 05/06/16 at 14:01; Status DC Hydralazine HCl (Apresoline) 10 mg PRN Q4HRS PRN IVP ELEVATED BP, SEE COMMENTS ; Start 05/06/16 at 14:00 Insulin Aspart (Novolog) 0-9 UNITS TIDWMEALS SQ ; Start 05/06/16 at 17:00 Dextrose 12.5 gm PRN Q15MIN PRN IV SEE COMMENTS; Start 05/06/16 at 14:00 Bivalirudin (Angiomax) 250 mg STK-MED ONCE IV ; Start 05/06/16 at 14:04; Stop at 14:05; Status DC Iodixanol (Visipaque 320) 100 ml STK-MED ONCE .ROUTE ; Start 05/06/16 at 14:05; Stop 05/06/16 at 14:06; Status DC Bivalirudin (Angiomax) 250 mg 1X ONCE IV Last administered on 05/06/16 15:06 ; Start 05/06/16 at 14:15; Stop 05/06/16 at 14:16; Status DC Clopidogrel Bisulfate (Plavix) 75 mg STK-MED ONCE .ROUTE ; Start 05/06/16 at 15: 01; Stop 05/06/16 at 15:02; Status DC Clopidogrel Bisulfate (Plavix) 600 mg 1X ONCE PO Last administered on 15:08; Start 05/06/16 at 15:15; Stop 05/06/16 at 15:17; Status DC Acetaminophen (Tylenol) 650 mg PRN Q6HRS PRN PO MILD PAIN / TEMP Last administered on 05/06/16 23:44; Start 05/06/16 at 15:15; Stop 05/07/16 at 10:30 ; Status DC Ondansetron HCl (Zofran) 4 mg PRN Q6HRS PRN IV NAUSEA/VOMITING; Start 05/06/16 at 15:15 Morphine Sulfate 2 mg PRN Q2HR PRN IV MILD-MOD PAIN; Start 05/06/16 at 15:15 Morphine Sulfate 4 mg PRN Q2HR PRN IV SEVERE PAIN; Start 05/06/16 at 15:15 Aspirin (Ecotrin) 81 mg DAILYWBKFT PO ; Start 05/07/16 at 08:00; Stop 05/07/16 at 08:00; Status DC Levothyroxine Sodium (Synthroid) 125 mcg DAILY07 PO Last administered on 07:12; Start 05/07/16 at 07:00 Tamsulosin HCl (Flomax) 0.4 mg DAILY PO Last administered on 05/08/16 08:53; Start 05/07/16 at 09:00 Multivitamins/ Calcium (Thera M Plus) 1 tab DAILY PO Last administered on 08:53; Start 05/07/16 at 09:00 Niacin (Slo-Niacin) 250 mg QHS PO Last administered on 05/07/16 21:03; Start 05/06/16 at 21:00 Insulin Detemir (Levemir) 25 units QHS SQ ; Start 05/06/16 at 21:00 Insulin Aspart (Novolog) 8 units TIDAC SQ ; Start 05/06/16 at 16:30; Stop at 13:05; Status DC Albuterol Sulfate 2.5 mg 2.5 mg PRN Q4HRS PRN NEB SHORTNESS OF BREATH; Start at 15:45 Sodium Chloride (Iv Sodium Chloride 0.45%) 1,000 ml @ 75 mls/hr [id number] IV ; Start 05/06/16 at 16:03; Stop 05/08/16 at 11:21; Status DC Aspirin (Ecotrin) 325 mg DAILYWBKFT PO Last administered on 05/08/16 08:53; Start 05/07/16 at 08:00 Clopidogrel Bisulfate (Plavix) 75 mg DAILYWBKFT PO Last administered on 08:53; Start 05/07/16 at 08:00 Acetaminophen (Tylenol) 650 mg PRN Q6HRS PRN PO MILD PAIN / TEMP; Start at 16:15 Nitroglycerin (Nitrostat) 0.4 mg PRN Q5MIN PRN SL CHEST PAIN; Start 05/06/16 at 16:15 Metoprolol Tartrate (Lopressor) 12.5 mg BID PO Last administered on 05/08/16 08:53; Start 05/06/16 at 21:00 Naloxone HCl (Narcan) 0.4 mg STK-MED ONCE .ROUTE ; Start 05/06/16 at 16:54; Stop 05/06/16 at 16:55; Status DC Naloxone HCl (Narcan) 0.4 mg 1X ONCE IV Last administered on 05/06/16 17:15; Start 05/06/16 at 17:15; Stop 05/06/16 at 17:16; Status DC Flumazenil (Romazicon) 0.1 mg 1X ONCE IV Last administered on 05/06/16 17:15 ; Start 05/06/16 at 17:15; Stop 05/06/16 at 17:16; Status DC Pneumococcal Polyvalent Vaccine (Do NOT chart on this placeholder) 1 each PRN 1X PRN MC SEE COMMENTS; Start 05/06/16 at 18:15 Haloperidol Lactate (Haldol) 1 mg PRN Q4HRS PRN IVP AGITATION Last administered on 05/06/16 19:22; Start 05/06/16 at 19:15 Haloperidol Lactate (Haldol) 2 mg PRN Q4HRS PRN IVP AGITATION Last administered on 05/07/16 04:49; Start 05/06/16 at 19:15 Active Scripts Active Reported Tamsulosin Hcl 0.4 Mg Cap.er.24h 0.4 Mg PO DAILY Niacin 100 Mg Tablet 100 Mg PO TID Multivitamins (Multivitamin) 1 Each Tablet 1 Each PO DAILY Levothyroxine Sodium 125 Mcg Tablet 125 Mcg PO DAILYAC Lantus (Insulin Glargine,Hum.rec.anlog) 100 Unit/1 Ml Vial 1 Unit SQ QHS Novolog Flexpen (Insulin Aspart) 100 Unit/1 Ml Insuln.pen 1 Unit SQ TIDAC Aspir 81 (Aspirin) 81 Mg Tablet.dr 81 Mg PO DAILY Vitals/I & O Vital Sign - Last 24 Hours 05/07/16 05/07/16 05/07/16 05/07/16 16:00 16:00 16:58 17:57 Temp 99.1 98.2 97.8 99.1 98.2 97.8 Pulse 79 68 70 Resp 18 18 18 B/P 93/56 123/61 110/56 Pulse Ox 100 98 98 O2 Delivery Room Air Room Air Room Air Room Air 05/07/16 05/07/16 05/07/16 05/07/16 18:54 20:00 20:00 21:00 Temp 97.9 99.2 97.9 99.2 Pulse 70 100 96 Resp 24 B/P 136/62 118/59 118/59 Pulse Ox 98 94 96 O2 Delivery Room Air Room Air Room Air Room Air 05/07/16 05/07/16 05/07/16 05/08/16 21:04 22:00 23:00 00:00 Temp 100.5 100.5 Pulse 97 89 84 84 Resp 22 B/P 118/59 172/82 147/76 158/76 Pulse Ox 96 92 94 O2 Delivery Room Air Room Air Room Air 05/08/16 05/08/16 05/08/16 05/08/16 00:00 01:00 02:00 03:00 Pulse 83 83 81 Resp 24 B/P 126/59 108/73 117/51 Pulse Ox 92 95 92 O2 Delivery Room Air Room Air Room Air Room Air 05/08/16 05/08/16 05/08/16 05/08/16 04:00 04:00 05:00 06:00 Temp 99.0 99.0 Pulse 77 84 81 Resp 22 B/P 91/74 107/45 114/56 Pulse Ox 92 92 92 O2 Delivery Room Air Room Air Room Air Room Air 1/2205/08/16 05/08/16 05/08/16 07:00 08:00 08:00 08:53 Temp 98.5 98.5 Pulse 82 80 84 Resp 20 18 B/P 125/53 141/50 137/65 Pulse Ox 93 100 O2 Delivery Room Air Room Air Room Air 05/08/16 05/08/16 05/08/16 05/08/16 09:00 10:00 11:00 12:00 Temp 100.3 100.3 Pulse 82 84 76 72 Resp 15 18 18 20 B/P 137/65 152/74 125/63 117/58 Pulse Ox 100 100 100 100 O2 Delivery Room Air Room Air Room Air Nasal Cannula O2 Flow Rate 2.0 Intake and Output 05/07/16 05/07/16 05/08/16 15:00 23:00 07:00 Intake Total 620 ml 920 ml 80 ml Output Total 595 ml 810 ml 935 ml Balance 25 ml 110 ml -855 ml ASHISH TAO MD May 08, 2016 15:27
--- NOTE | 2016-05-08 15:50 | PDOC ---
PROGRESS NOTES Chief Complaint Chief Complaint - NSTEMI with hx CAD with stents and CABG - Encephalopathy, post-operative - DM - HTN - Hyperlipidemia - GERD - Anemia - Tobaccoism - Hypothyroidism - Hearing loss - Constipation - Diabetic retinopathy - Cataract - BPH History of Present Illness History of Present Illness 71 year old male seen in ICU with and family in room. Patient was seated in bedside chair on exam, was alert and talkative today. Patient expresses desire to be discharged home. expresses concerns about patient's strength and ability to provide adequate self care, noting weakness and increased reliance on cane for ambulation. Patient's mentation is clear today. Discussed case with RN. Vitals Vitals Vital Signs Date Time Temp Pulse Resp B/P Pulse Ox O2 Delivery O2 Flow Rate FiO2 05/08/16 12:00 100.3 72 20 117/58 100 Nasal Cannula 2.0 100.3 Physical Exam General: Alert, Oriented X3, Cooperative, No acute distress, Other Heart: Regular rate, Other (No gallops or rubs) Lungs: Clear, Other (No wheezes) Abdomen: Soft, No tenderness, Other (truncal obesity) Extremities: No cyanosis, Other (1+ bilateral LE pitting edema) Skin: No breakdown, No significant lesion Labs LABS Laboratory Tests Test 05/07/16 16:07 05/07/16 21:01 05/08/16 07:54 Glucose (Fingerstick) 117mg/dL (70-99) 80mg/dL (70-99) White Blood Count 8.9x10^3/uL (4.0-11.0) Red Blood Count 3.45x10^6/uL (4.30-5.70) Hemoglobin 10.4g/dL (13.0-17.5) Hematocrit 31.1% (39.0-53.0) Mean Corpuscular Volume 90fL (79-100) Mean Corpuscular Hemoglobin 30pg (25-35) Mean Corpuscular Hemoglobin Concent 34g/dL (31-37) Red Cell Distribution Width 13.9% (11.5-14.5) Platelet Count 214x10^3/uL (140-400) Neutrophils (%) (Auto) 78% (31-73) Lymphocytes (%) (Auto) 9% (24-48) Monocytes (%) (Auto) 12% (0-9) Eosinophils (%) (Auto) 1% (0-3) Basophils (%) (Auto) 0% (0-3) Neutrophils # (Auto) 6.9x10^3uL (1.8-7.7) Lymphocytes # (Auto) 0.8x10^3/uL (1.0-4.8) Monocytes # (Auto) 1.1x10^3/uL (0.0-1.1) Eosinophils # (Auto) 0.1x10^3/uL (0.0-0.7) Basophils # (Auto) 0.0x10^3/uL (0.0-0.2) Sodium Level 137mmol/L (136-145) Potassium Level 3.6mmol/L (3.5-5.1) Chloride Level 104mmol/L (98-107) Carbon Dioxide Level 24mmol/L (21-32) Anion Gap 9 (6-14) Blood Urea Nitrogen 19mg/dL (8-26) Creatinine 1.3mg/dL (0.7-1.3) Estimated GFR (Cockcroft-Gault) 54.4 Glucose Level 87mg/dL (70-99) Calcium Level 8.4mg/dL (8.5-10.1) Review of Systems Review of Systems Denies SOA Chest pain improved Denies confusion Assessment and Plan Assessmemt and Plan Assessment: - NSTEMI with hx CAD with stents and CABG - Encephalopathy, post-operative - DM - HTN - Hyperlipidemia - GERD - Anemia - Tobaccoism - Hypothyroidism - Hearing loss - Constipation - Diabetic retinopathy - Cataract - BPH Plan: - Patient stable enough for transfer to floor from ICU when bed available - Appreciate neurology input. Will monitor for resolution of encephalopathy - Monitor for hypoglycemia. Use sliding scale insulin as needed - SNU eval pending - Recheck labs in a.m. - PT/OT when appropriate - Appreciate subspecialty input Problems: Comment Review of Relevant I have reviewed the following items rebecca (where applicable) has been applied. Labs Laboratory Tests Test 05/06/16 16:40 05/06/16 18:38 05/06/16 19:15 05/06/16 21:22 Nasal Screen MRSA (PCR) Positive (Negative) Glucose (Fingerstick) 74mg/dL (70-99) 78mg/dL (70-99) Troponin I Quantitative 7.231ng/mL (0.000-0.055) Test 05/07/16 03:50 05/07/16 08:09 05/07/16 12:04 05/07/16 16:07 White Blood Count 8.9x10^3/uL (4.0-11.0) Red Blood Count 3.20x10^6/uL (4.30-5.70) Hemoglobin 9.9g/dL (13.0-17.5) Hematocrit 28.9% (39.0-53.0) Mean Corpuscular Volume 90fL (79-100) Mean Corpuscular Hemoglobin 31pg (25-35) Mean Corpuscular Hemoglobin Concent 34g/dL (31-37) Red Cell Distribution Width 13.6% (11.5-14.5) Platelet Count 217x10^3/uL (140-400) Neutrophils (%) (Auto) 80% (31-73) Lymphocytes (%) (Auto) 9% (24-48) Monocytes (%) (Auto) 10% (0-9) Eosinophils (%) (Auto) 0% (0-3) Basophils (%) (Auto) 0% (0-3) Neutrophils # (Auto) 7.1x10^3uL (1.8-7.7) Lymphocytes # (Auto) 0.8x10^3/uL (1.0-4.8) Monocytes # (Auto) 0.9x10^3/uL (0.0-1.1) Eosinophils # (Auto) 0.0x10^3/uL (0.0-0.7) Basophils # (Auto) 0.0x10^3/uL (0.0-0.2) Sodium Level 139mmol/L (136-145) Potassium Level 3.8mmol/L (3.5-5.1) Chloride Level 106mmol/L (98-107) Carbon Dioxide Level 23mmol/L (21-32) Anion Gap 10 (6-14) Blood Urea Nitrogen 24mg/dL (8-26) Creatinine 1.3mg/dL (0.7-1.3) Estimated GFR (Cockcroft-Gault) 54.4 Glucose Level 62mg/dL (70-99) Hemoglobin A1c 6.2% (4.8-5.6) Calcium Level 8.3mg/dL (8.5-10.1) Troponin I Quantitative 10.519ng/mL (0.000-0.055) Triglycerides Level 38mg/dL (0-150) Cholesterol Level 101mg/dL (0-200) LDL Cholesterol, Calculated 51mg/dL (0-100) VLDL Cholesterol, Calculated 8mg/dL (0-40) HDL Cholesterol 42mg/dL (40-60) Cholesterol/HDL Ratio 2.4 Glucose (Fingerstick) 70mg/dL (70-99) 80mg/dL (70-99) 117mg/dL (70-99) Test 05/07/16 21:01 05/08/16 07:54 Glucose (Fingerstick) 80mg/dL (70-99) White Blood Count 8.9x10^3/uL (4.0-11.0) Red Blood Count 3.45x10^6/uL (4.30-5.70) Hemoglobin 10.4g/dL (13.0-17.5) Hematocrit 31.1% (39.0-53.0) Mean Corpuscular Volume 90fL (79-100) Mean Corpuscular Hemoglobin 30pg (25-35) Mean Corpuscular Hemoglobin Concent 34g/dL (31-37) Red Cell Distribution Width 13.9% (11.5-14.5) Platelet Count 214x10^3/uL (140-400) Neutrophils (%) (Auto) 78% (31-73) Lymphocytes (%) (Auto) 9% (24-48) Monocytes (%) (Auto) 12% (0-9) Eosinophils (%) (Auto) 1% (0-3) Basophils (%) (Auto) 0% (0-3) Neutrophils # (Auto) 6.9x10^3uL (1.8-7.7) Lymphocytes # (Auto) 0.8x10^3/uL (1.0-4.8) Monocytes # (Auto) 1.1x10^3/uL (0.0-1.1) Eosinophils # (Auto) 0.1x10^3/uL (0.0-0.7) Basophils # (Auto) 0.0x10^3/uL (0.0-0.2) Sodium Level 137mmol/L (136-145) Potassium Level 3.6mmol/L (3.5-5.1) Chloride Level 104mmol/L (98-107) Carbon Dioxide Level 24mmol/L (21-32) Anion Gap 9 (6-14) Blood Urea Nitrogen 19mg/dL (8-26) Creatinine 1.3mg/dL (0.7-1.3) Estimated GFR (Cockcroft-Gault) 54.4 Glucose Level 87mg/dL (70-99) Calcium Level 8.4mg/dL (8.5-10.1) Laboratory Tests Test 05/07/16 16:07 05/07/16 21:01 05/08/16 07:54 Glucose (Fingerstick) 117mg/dL (70-99) 80mg/dL (70-99) White Blood Count 8.9x10^3/uL (4.0-11.0) Red Blood Count 3.45x10^6/uL (4.30-5.70) Hemoglobin 10.4g/dL (13.0-17.5) Hematocrit 31.1% (39.0-53.0) Mean Corpuscular Volume 90fL (79-100) Mean Corpuscular Hemoglobin 30pg (25-35) Mean Corpuscular Hemoglobin Concent 34g/dL (31-37) Red Cell Distribution Width 13.9% (11.5-14.5) Platelet Count 214x10^3/uL (140-400) Neutrophils (%) (Auto) 78% (31-73) Lymphocytes (%) (Auto) 9% (24-48) Monocytes (%) (Auto) 12% (0-9) Eosinophils (%) (Auto) 1% (0-3) Basophils (%) (Auto) 0% (0-3) Neutrophils # (Auto) 6.9x10^3uL (1.8-7.7) Lymphocytes # (Auto) 0.8x10^3/uL (1.0-4.8) Monocytes # (Auto) 1.1x10^3/uL (0.0-1.1) Eosinophils # (Auto) 0.1x10^3/uL (0.0-0.7) Basophils # (Auto) 0.0x10^3/uL (0.0-0.2) Sodium Level 137mmol/L (136-145) Potassium Level 3.6mmol/L (3.5-5.1) Chloride Level 104mmol/L (98-107) Carbon Dioxide Level 24mmol/L (21-32) Anion Gap 9 (6-14) Blood Urea Nitrogen 19mg/dL (8-26) Creatinine 1.3mg/dL (0.7-1.3) Estimated GFR (Cockcroft-Gault) 54.4 Glucose Level 87mg/dL (70-99) Calcium Level 8.4mg/dL (8.5-10.1) Medications Current Medications Heparin Sodium/ Sodium Chloride 500 ml @ As Directed STK-MED ONCE .ROUTE ; Start 05/06/16 at 13:07; Stop 05/06/16 at 13:08; Status DC Lidocaine HCl 20 ml STK-MED ONCE .ROUTE ; Start 05/06/16 at 13:07; Stop at 13:08; Status DC Iodixanol (Visipaque 320) 100 ml STK-MED ONCE .ROUTE ; Start 05/06/16 at 13:07; Stop 05/06/16 at 13:08; Status DC Iodixanol (Visipaque 320) 100 ml STK-MED ONCE .ROUTE ; Start 05/06/16 at 13:17; Stop 05/06/16 at 13:18; Status DC Nitroglycerin (Nitroglycerin) 200 mcg STK-MED ONCE .ROUTE ; Start 05/06/16 at 13 :39; Stop 05/06/16 at 13:40; Status DC Verapamil HCl (Verapamil) 5 mg STK-MED ONCE .ROUTE ; Start 05/06/16 at 13:39; Stop 05/06/16 at 13:40; Status DC Heparin Sodium (Porcine) 10,000 unit STK-MED ONCE .ROUTE ; Start 05/06/16 at 13: 39; Stop 05/06/16 at 13:40; Status DC Midazolam HCl (Versed) 5 mg STK-MED ONCE .ROUTE ; Start 05/06/16 at 13:39; Stop 05/06/16 at 13:40; Status DC Fentanyl Citrate (Fentanyl 5ml Vial) 250 mcg STK-MED ONCE .ROUTE ; Start at 13:39; Stop 05/06/16 at 13:40; Status DC Nitroglycerin (Nitroglycerin) 200 mcg 1X ONCE IART Last administered on 15:08; Start 05/06/16 at 14:00; Stop 05/06/16 at 14:01; Status DC Verapamil HCl (Verapamil) 2.5 mg 1X ONCE IART Last administered on 05/06/16 15:08; Start 05/06/16 at 14:00; Stop 05/06/16 at 14:01; Status DC Heparin Sodium (Porcine) 2,500 unit 1X ONCE IART Last administered on 15:06; Start 05/06/16 at 14:00; Stop 05/06/16 at 14:01; Status DC Heparin Sodium/ Sodium Chloride 1,000 unit 1X ONCE IART Last administered on 14:00; Start 05/06/16 at 14:00; Stop 05/06/16 at 14:01; Status DC Midazolam HCl (Versed) 5 mg 1X ONCE IV Last administered on 05/06/16 15:06; Start 05/06/16 at 14:00; Stop 05/06/16 at 14:01; Status DC Fentanyl Citrate (Fentanyl 5ml Vial) 250 mcg 1X ONCE IV Last administered on 15:07; Start 05/06/16 at 14:00; Stop 05/06/16 at 14:01; Status DC Iodixanol (Visipaque 320) 100 ml 1X ONCE IART Last administered on 05/06/16 15:07; Start 05/06/16 at 14:00; Stop 05/06/16 at 14:01; Status DC Lidocaine HCl 20 ml 1X ONCE IJ Last administered on 05/06/16 15:07; Start at 14:00; Stop 05/06/16 at 14:01; Status DC Hydralazine HCl (Apresoline) 10 mg PRN Q4HRS PRN IVP ELEVATED BP, SEE COMMENTS ; Start 05/06/16 at 14:00 Insulin Aspart (Novolog) 0-9 UNITS TIDWMEALS SQ ; Start 05/06/16 at 17:00 Dextrose 12.5 gm PRN Q15MIN PRN IV SEE COMMENTS; Start 05/06/16 at 14:00 Bivalirudin (Angiomax) 250 mg STK-MED ONCE IV ; Start 05/06/16 at 14:04; Stop at 14:05; Status DC Iodixanol (Visipaque 320) 100 ml STK-MED ONCE .ROUTE ; Start 05/06/16 at 14:05; Stop 05/06/16 at 14:06; Status DC Bivalirudin (Angiomax) 250 mg 1X ONCE IV Last administered on 05/06/16 15:06 ; Start 05/06/16 at 14:15; Stop 05/06/16 at 14:16; Status DC Clopidogrel Bisulfate (Plavix) 75 mg STK-MED ONCE .ROUTE ; Start 05/06/16 at 15: 01; Stop 05/06/16 at 15:02; Status DC Clopidogrel Bisulfate (Plavix) 600 mg 1X ONCE PO Last administered on 15:08; Start 05/06/16 at 15:15; Stop 05/06/16 at 15:17; Status DC Acetaminophen (Tylenol) 650 mg PRN Q6HRS PRN PO MILD PAIN / TEMP Last administered on 05/06/16 23:44; Start 05/06/16 at 15:15; Stop 05/07/16 at 10:30 ; Status DC Ondansetron HCl (Zofran) 4 mg PRN Q6HRS PRN IV NAUSEA/VOMITING; Start 05/06/16 at 15:15 Morphine Sulfate 2 mg PRN Q2HR PRN IV MILD-MOD PAIN; Start 05/06/16 at 15:15 Morphine Sulfate 4 mg PRN Q2HR PRN IV SEVERE PAIN; Start 05/06/16 at 15:15 Aspirin (Ecotrin) 81 mg DAILYWBKFT PO ; Start 05/07/16 at 08:00; Stop 05/07/16 at 08:00; Status DC Levothyroxine Sodium (Synthroid) 125 mcg DAILY07 PO Last administered on 07:12; Start 05/07/16 at 07:00 Tamsulosin HCl (Flomax) 0.4 mg DAILY PO Last administered on 05/08/16 08:53; Start 05/07/16 at 09:00 Multivitamins/ Calcium (Thera M Plus) 1 tab DAILY PO Last administered on 08:53; Start 05/07/16 at 09:00 Niacin (Slo-Niacin) 250 mg QHS PO Last administered on 05/07/16 21:03; Start 05/06/16 at 21:00 Insulin Detemir (Levemir) 25 units QHS SQ ; Start 05/06/16 at 21:00 Insulin Aspart (Novolog) 8 units TIDAC SQ ; Start 05/06/16 at 16:30; Stop at 13:05; Status DC Albuterol Sulfate 2.5 mg 2.5 mg PRN Q4HRS PRN NEB SHORTNESS OF BREATH; Start at 15:45 Sodium Chloride (Iv Sodium Chloride 0.45%) 1,000 ml @ 75 mls/hr [id number] IV ; Start 05/06/16 at 16:03; Stop 05/08/16 at 11:21; Status DC Aspirin (Ecotrin) 325 mg DAILYWBKFT PO Last administered on 05/08/16 08:53; Start 05/07/16 at 08:00 Clopidogrel Bisulfate (Plavix) 75 mg DAILYWBKFT PO Last administered on 08:53; Start 05/07/16 at 08:00 Acetaminophen (Tylenol) 650 mg PRN Q6HRS PRN PO MILD PAIN / TEMP; Start at 16:15 Nitroglycerin (Nitrostat) 0.4 mg PRN Q5MIN PRN SL CHEST PAIN; Start 05/06/16 at 16:15 Metoprolol Tartrate (Lopressor) 12.5 mg BID PO Last administered on 05/08/16 08:53; Start 05/06/16 at 21:00 Naloxone HCl (Narcan) 0.4 mg STK-MED ONCE .ROUTE ; Start 05/06/16 at 16:54; Stop 05/06/16 at 16:55; Status DC Naloxone HCl (Narcan) 0.4 mg 1X ONCE IV Last administered on 05/06/16 17:15; Start 05/06/16 at 17:15; Stop 05/06/16 at 17:16; Status DC Flumazenil (Romazicon) 0.1 mg 1X ONCE IV Last administered on 1/20/17at 17:15 ; Start 05/06/16 at 17:15; Stop 05/06/16 at 17:16; Status DC Pneumococcal Polyvalent Vaccine (Do NOT chart on this placeholder) 1 each PRN 1X PRN MC SEE COMMENTS; Start 05/06/16 at 18:15 Haloperidol Lactate (Haldol) 1 mg PRN Q4HRS PRN IVP AGITATION Last administered on 05/06/16 19:22; Start 05/06/16 at 19:15 Haloperidol Lactate (Haldol) 2 mg PRN Q4HRS PRN IVP AGITATION Last administered on 05/07/16 04:49; Start 05/06/16 at 19:15 Active Scripts Active Reported Tamsulosin Hcl 0.4 Mg Cap.er.24h 0.4 Mg PO DAILY Niacin 100 Mg Tablet 100 Mg PO TID Multivitamins (Multivitamin) 1 Each Tablet 1 Each PO DAILY Levothyroxine Sodium 125 Mcg Tablet 125 Mcg PO DAILYAC Lantus (Insulin Glargine,Hum.rec.anlog) 100 Unit/1 Ml Vial 1 Unit SQ QHS Novolog Flexpen (Insulin Aspart) 100 Unit/1 Ml Insuln.pen 1 Unit SQ TIDAC Aspir 81 (Aspirin) 81 Mg Tablet.dr 81 Mg PO DAILY Vitals/I & O Vital Sign - Last 24 Hours 05/07/16 05/07/16 05/07/16 05/07/16 16:00 16:00 16:58 17:57 Temp 99.1 98.2 97.8 99.1 98.2 97.8 Pulse 79 68 70 Resp 18 B/P 93/56 123/61 110/56 Pulse Ox 100 98 98 O2 Delivery Room Air Room Air Room Air Room Air 05/07/16 05/07/16 05/07/16 05/07/16 18:54 20:00 20:00 21:00 Temp 97.9 99.2 97.9 99.2 Pulse 70 100 96 Resp 16 24 B/P 136/62 118/59 118/59 Pulse Ox 98 94 96 O2 Delivery Room Air Room Air Room Air Room Air 05/07/16 05/07/16 05/07/16 05/08/16 21:04 22:00 23:00 00:00 Temp 100.5 100.5 Pulse 97 89 84 84 Resp 24 18 22 B/P 118/59 172/82 147/76 158/76 Pulse Ox 96 92 94 O2 Delivery Room Air Room Air Room Air 05/08/16 05/08/16 05/08/16 05/08/16 00:00 01:00 02:00 03:00 Pulse 83 83 81 Resp B/P 126/59 108/73 117/51 Pulse Ox 92 95 92 O2 Delivery Room Air Room Air Room Air Room Air 05/08/16 05/08/16 05/08/16 05/08/16 04:00 04:00 05:00 06:00 Temp 99.0 99.0 Pulse 77 84 81 Resp B/P 91/74 107/45 114/56 Pulse Ox 92 92 92 O2 Delivery Room Air Room Air Room Air Room Air 05/08/16 05/08/16 05/08/16 05/08/16 07:00 08:00 08:00 08:53 Temp 98.5 98.5 Pulse 82 80 84 Resp B/P 125/53 141/50 137/65 Pulse Ox 93 100 O2 Delivery Room Air Room Air Room Air 05/08/16 05/08/16 05/08/16 05/08/16 09:00 10:00 11:00 12:00 Temp 100.3 100.3 Pulse 82 84 76 72 Resp B/P 137/65 152/74 125/63 117/58 Pulse Ox 100 100 100 100 O2 Delivery Room Air Room Air Room Air Nasal Cannula O2 Flow Rate 2.0 Intake and Output 05/07/16 05/07/16 05/08/16 15:00 23:00 07:00 Intake Total 620 ml 920 ml 80 ml Output Total 595 ml 810 ml 935 ml Balance 25 ml 110 ml -855 ml RENENIAL K III DO May 08, 2016 15:50
[2016-05-08] MEDS: INSULIN DETEMIR 300 UNITS/3 ML INSULN.PEN. SQ SCH (21:21)
[2016-05-08] MEDS: NIACIN ER 250 MG TABLET.ER PO SCH (21:50)
[2016-05-09 00:01] VITALS: BP 134/67
[2016-05-09 04:00] VITALS: BP 135/70
[2016-05-09 05:10] LABS: BASO % 0 % (0-3); EOS % 4 % (0-3); HEMATOCRIT 32.1 % (39.0-53.0); HEMOGLOBIN 10.8 g/dL (13.0-17.5); LYMPH # 0.9 x10^3/uL (1.0-4.8); LYMPH % 12 % (24-48); MEAN CORPUSCULAR HEMOGLOBIN 31 pg (25-35); MEAN CORPUSCULAR HGB CONC 34 g/dL (31-37); MEAN CORPUSCULAR VOLUME 91 fL (79-100); MONO % 13 % (0-9); NEUT % 72 % (31-73); PLATELET COUNT 213 x10^3/uL (140-400); RED BLOOD COUNT 3.52 x10^6/uL (4.30-5.70); RED CELL DISTRIBUTION WIDTH 13.9 % (11.5-14.5); WHITE BLOOD COUNT 7.2 x10^3/uL (4.0-11.0)
[2016-05-09] MEDS: LEVOTHYROXINE 125 MCG TABLET PO SCH (06:18)
[2016-05-09 06:29] LABS: CALCIUM 8.2 mg/dL (8.5-10.1); CREATININE 1.2 mg/dL (0.7-1.3); GFR 59.7; POTASSIUM 3.7 mmol/L (3.5-5.1)
[2016-05-09 08:00] VITALS: BP 125/60
[2016-05-09] MEDS: INSULIN ASPART 300 UNITS/3 ML INSULN.PEN SQ SCH ×2 (08:00→12:00)
[2016-05-09] MEDS: ASPIRIN ENTERIC COATED 325 MG TABLET.DR. PO SCH (08:16)
[2016-05-09] MEDS: MULTIVITAMIN with MINERAL TABLET. PO SCH (08:16)
[2016-05-09] MEDS: CLOPIDOGREL BISULFATE 75 MG TABLET PO SCH (08:16)
[2016-05-09] MEDS: TAMSULOSIN 0.4 MG CAP.ER.24H. PO SCH (08:16)
[2016-05-09] MEDS: METOPROLOL TART IMMED RELEASE 25 MG TABLET PO SCH (08:17)
[2016-05-09] MEDS ORDERED: METO25TA4 PO (09:58)
[2016-05-09] MEDS ORDERED: ASPI325T4 PO (09:58)
[2016-05-09] MEDS ORDERED: CLOP75TA PO (09:58)
[2016-05-09 11:35] VITALS: BP 129/63
--- NOTE | 2016-05-09 11:56 | PDOC ---
CARDIO Progress Notes Date and Time Date of Service 05/09/16 Time of Evaluation 1200 Vitals Vitals Vital Signs Date Time Temp Pulse Resp B/P Pulse Ox O2 Delivery O2 Flow Rate FiO2 05/09/16 11:35 98.0 76 18 129/63 94 Nasal Cannula 1.0 98.0 Weight Weight [ ] Input and Output Intake and Output Intake and Output 05/09/16 07:00 Intake Total 280 ml Output Total 1200 ml Balance -920 ml Intake Oral 280 ml Output Urine Total 1200 ml Laboratory Labs Laboratory Tests Test 05/08/16 11:58 05/08/16 17:38 05/08/16 20:39 05/09/16 04:10 Glucose (Fingerstick) 134mg/dL (70-99) 130mg/dL (70-99) 105mg/dL (70-99) White Blood Count 7.2x10^3/uL (4.0-11.0) Red Blood Count 3.52x10^6/uL (4.30-5.70) Hemoglobin 10.8g/dL (13.0-17.5) Hematocrit 32.1% (39.0-53.0) Mean Corpuscular Volume 91fL (79-100) Mean Corpuscular Hemoglobin 31pg (25-35) Mean Corpuscular Hemoglobin Concent 34g/dL (31-37) Red Cell Distribution Width 13.9% (11.5-14.5) Platelet Count 213x10^3/uL (140-400) Neutrophils (%) (Auto) 72% (31-73) Lymphocytes (%) (Auto) 12% (24-48) Monocytes (%) (Auto) 13% (0-9) Eosinophils (%) (Auto) 4% (0-3) Basophils (%) (Auto) 0% (0-3) Neutrophils # (Auto) 5.2x10^3uL (1.8-7.7) Lymphocytes # (Auto) 0.9x10^3/uL (1.0-4.8) Monocytes # (Auto) 0.9x10^3/uL (0.0-1.1) Eosinophils # (Auto) 0.3x10^3/uL (0.0-0.7) Basophils # (Auto) 0.0x10^3/uL (0.0-0.2) Test 05/09/16 04:20 05/09/16 07:20 Sodium Level 142mmol/L (136-145) Potassium Level 3.7mmol/L (3.5-5.1) Chloride Level 108mmol/L (98-107) Carbon Dioxide Level 23mmol/L (21-32) Anion Gap 11 (6-14) Blood Urea Nitrogen 22mg/dL (8-26) Creatinine 1.2mg/dL (0.7-1.3) Estimated GFR (Cockcroft-Gault) 59.7 Glucose Level 105mg/dL (70-99) Calcium Level 8.2mg/dL (8.5-10.1) Glucose (Fingerstick) 74mg/dL (70-99) Physical Exam HEENT: Neck Supple W Full Motion Chest: Symmetric LUNGS: Clear to Auscultation Heart: S1S2, RRR, murmurs (2/6 systolic murmur ) Abdomen: Soft N/T Extremities: 2+ Dorsalis Pedis, Other (trace bilateral LE edema ) Neurology: alert, oriented, follow commands Assessment Assessment 1. NSTEMI s/p PCI/COLTON to RCA. Echo showed LVEF of 55%. Stable. No acute events overnight Risk stratification modification. Continue secondary prevention including DAPT with ASA and Plavix. cardiac rehab referral May discharge from a cardiac standpoint and f.u in our [place] office with Dr. Villarreal in 1 month; appointment scheduled 2. H/o CAD previous CABG Cardiac cath revealed patent TRENT to LAD, SVG to OM, SVG to RCA. s/p PCI/COLTON to RCA Continue dual antiplatelet therapy. 2. Acute encephalopathy Acute CVA r/o. Likely secondary to procedural stress and sedatives per neurology. resolved. Now A&O x3 3. HTN Well-controlled. continue with current therapy 4. HLP intolerant to statin LDL = 51 continue niacin 5. Hypothyroidism TSH at 1.55 on replacement therapy. 6. Tobaccoism smoking cessation encouraged 7. DM2 insulin dependent. Per PCP KINA HAYWOOD APRN May 09, 2016 11:56
--- NOTE | 2016-05-09 12:41 | PDOC3 ---
Discharge Summary Visit Information Date of Admission: May 06, 2016 Date of Discharge: May 09, 2016 Admitting Diagnosis Comment: - NSTEMI with hx CAD with stents and CABG - Encephalopathy, post-operative - DM - HTN - Hyperlipidemia - GERD - Anemia - Tobaccoism - Hypothyroidism - Hearing loss - Constipation - Diabetic retinopathy - Cataract - BPH Final Diagnosis Problems Medical Problems: (1) Chest pain Status: Acute (2) NSTEMI (non-ST elevated myocardial infarction) Status: Acute Brief Hospital Course Allergies Allergies Coded Allergies Type Severity Reaction Last Updated Verified Poszngx-Lfn-Gim Reductase Inhibitor Allergy Severe "LOSS OF MUSCLE " 05/06/16 Yes influenza virus vaccine qs [id number] (36 mos +) Allergy Intermediate 05/06/16 No I S O L A T I O N *CONTACT* Allergy Unknown 05/09/16 Yes Vital Signs Vital Signs Date Time Temp Pulse Resp B/P Pulse Ox O2 Delivery O2 Flow Rate FiO2 05/09/16 11:35 98.0 76 18 129/63 94 Nasal Cannula 1.0 98.0 Lab Results Laboratory Tests Test 05/07/16 16:07 05/07/16 21:01 05/08/16 07:10 05/08/16 07:54 Glucose (Fingerstick) 117mg/dL (70-99) 80mg/dL (70-99) 65mg/dL (70-99) White Blood Count 8.9x10^3/uL (4.0-11.0) Red Blood Count 3.45x10^6/uL (4.30-5.70) Hemoglobin 10.4g/dL (13.0-17.5) Hematocrit 31.1% (39.0-53.0) Mean Corpuscular Volume 90fL (79-100) Mean Corpuscular Hemoglobin 30pg (25-35) Mean Corpuscular Hemoglobin Concent 34g/dL (31-37) Red Cell Distribution Width 13.9% (11.5-14.5) Platelet Count 214x10^3/uL (140-400) Neutrophils (%) (Auto) 78% (31-73) Lymphocytes (%) (Auto) 9% (24-48) Monocytes (%) (Auto) 12% (0-9) Eosinophils (%) (Auto) 1% (0-3) Basophils (%) (Auto) 0% (0-3) Neutrophils # (Auto) 6.9x10^3uL (1.8-7.7) Lymphocytes # (Auto) 0.8x10^3/uL (1.0-4.8) Monocytes # (Auto) 1.1x10^3/uL (0.0-1.1) Eosinophils # (Auto) 0.1x10^3/uL (0.0-0.7) Basophils # (Auto) 0.0x10^3/uL (0.0-0.2) Sodium Level 137mmol/L (136-145) Potassium Level 3.6mmol/L (3.5-5.1) Chloride Level 104mmol/L (98-107) Carbon Dioxide Level 24mmol/L (21-32) Anion Gap 9 (6-14) Blood Urea Nitrogen 19mg/dL (8-26) Creatinine 1.3mg/dL (0.7-1.3) Estimated GFR (Cockcroft-Gault) 54.4 Glucose Level 87mg/dL (70-99) Calcium Level 8.4mg/dL (8.5-10.1) Test 05/08/16 11:58 05/08/16 17:38 05/08/16 20:39 05/09/16 04:10 Glucose (Fingerstick) 134mg/dL (70-99) 130mg/dL (70-99) 105mg/dL (70-99) White Blood Count 7.2x10^3/uL (4.0-11.0) Red Blood Count 3.52x10^6/uL (4.30-5.70) Hemoglobin 10.8g/dL (13.0-17.5) Hematocrit 32.1% (39.0-53.0) Mean Corpuscular Volume 91fL (79-100) Mean Corpuscular Hemoglobin 31pg (25-35) Mean Corpuscular Hemoglobin Concent 34g/dL (31-37) Red Cell Distribution Width 13.9% (11.5-14.5) Platelet Count 213x10^3/uL (140-400) Neutrophils (%) (Auto) 72% (31-73) Lymphocytes (%) (Auto) 12% (24-48) Monocytes (%) (Auto) 13% (0-9) Eosinophils (%) (Auto) 4% (0-3) Basophils (%) (Auto) 0% (0-3) Neutrophils # (Auto) 5.2x10^3uL (1.8-7.7) Lymphocytes # (Auto) 0.9x10^3/uL (1.0-4.8) Monocytes # (Auto) 0.9x10^3/uL (0.0-1.1) Eosinophils # (Auto) 0.3x10^3/uL (0.0-0.7) Basophils # (Auto) 0.0x10^3/uL (0.0-0.2) Test 05/09/16 04:20 05/09/16 07:20 05/09/16 11:45 Sodium Level 142mmol/L (136-145) Potassium Level 3.7mmol/L (3.5-5.1) Chloride Level 108mmol/L (98-107) Carbon Dioxide Level 23mmol/L (21-32) Anion Gap 11 (6-14) Blood Urea Nitrogen 22mg/dL (8-26) Creatinine 1.2mg/dL (0.7-1.3) Estimated GFR (Cockcroft-Gault) 59.7 Glucose Level 105mg/dL (70-99) Calcium Level 8.2mg/dL (8.5-10.1) Glucose (Fingerstick) 74mg/dL (70-99) 116mg/dL (70-99) Laboratory Tests Test 05/08/16 17:38 05/08/16 20:39 05/09/16 04:10 05/09/16 04:20 Glucose (Fingerstick) 130mg/dL (70-99) 105mg/dL (70-99) White Blood Count 7.2x10^3/uL (4.0-11.0) Red Blood Count 3.52x10^6/uL (4.30-5.70) Hemoglobin 10.8g/dL (13.0-17.5) Hematocrit 32.1% (39.0-53.0) Mean Corpuscular Volume 91fL (79-100) Mean Corpuscular Hemoglobin 31pg (25-35) Mean Corpuscular Hemoglobin Concent 34g/dL (31-37) Red Cell Distribution Width 13.9% (11.5-14.5) Platelet Count 213x10^3/uL (140-400) Neutrophils (%) (Auto) 72% (31-73) Lymphocytes (%) (Auto) 12% (24-48) Monocytes (%) (Auto) 13% (0-9) Eosinophils (%) (Auto) 4% (0-3) Basophils (%) (Auto) 0% (0-3) Neutrophils # (Auto) 5.2x10^3uL (1.8-7.7) Lymphocytes # (Auto) 0.9x10^3/uL (1.0-4.8) Monocytes # (Auto) 0.9x10^3/uL (0.0-1.1) Eosinophils # (Auto) 0.3x10^3/uL (0.0-0.7) Basophils # (Auto) 0.0x10^3/uL (0.0-0.2) Sodium Level 142mmol/L (136-145) Potassium Level 3.7mmol/L (3.5-5.1) Chloride Level 108mmol/L (98-107) Carbon Dioxide Level 23mmol/L (21-32) Anion Gap 11 (6-14) Blood Urea Nitrogen 22mg/dL (8-26) Creatinine 1.2mg/dL (0.7-1.3) Estimated GFR (Cockcroft-Gault) 59.7 Glucose Level 105mg/dL (70-99) Calcium Level 8.2mg/dL (8.5-10.1) Test 05/09/16 07:20 05/09/16 11:45 Glucose (Fingerstick) 74mg/dL (70-99) 116mg/dL (70-99) Brief Hospital Course Mr. Bassett is a 71 old male admitted for CP, found to have CAD needing 1 stent to RCA, ff up cards 1 month, Post procedure course remarkable for some confusion, needing neuro on board,. COnfusion resolved on its own, Stable to dc home SNU or acute rehab was recommended by pT, pt does not want even HH, seems to think otherwise, Pt uses a cane to ambulate Dw RN and family Rx for rehab and his new ASA 81 and plavix 75 in chart Pt seen and examined COnsults: cards, neuro Proc Stenting Discharge Information Condition at Discharge: Improved, Stable Follow Up: Weeks (4 weeks cards) Disposition/Orders: D/C to Home Scheduled Aspirin (Aspir 81) 81 MG PO DAILY (Reported) Insulin Aspart (Novolog Flexpen) 1 UNIT SQ TIDAC (Reported) Insulin Glargine,Hum.rec.anlog (Lantus) 1 UNIT SQ QHS (Reported) Levothyroxine Sodium (Levothyroxine Sodium) 125 MCG PO DAILYAC (Reported) Multivitamin (Multivitamins) 1 EACH PO DAILY (Reported) Niacin (Niacin) 100 MG PO TID (Reported) Tamsulosin Hcl (Tamsulosin Hcl) 0.4 MG PO DAILY (Reported) VIVIANE RUTLEDGE MD May 09, 2016 12:41
--- NOTE | 2016-05-09 14:26 | PDOC ---
Provider Note Provider Note consult cancelled pt not interested in having any sleep study EUSEBIO SANTACRUZ MD May 09, 2016 14:26
--- NOTE | 2016-05-09 16:12 | PDOC ---
PROGRESS NOTES Assessment Assessment IMPRESSION: Metabolic encephalopathy. Confusion Agitation Chest pain CAD HTN HLD DM Hypothyroidism Obesity Tobacco abuse RECOMMENDATIONS/PLAN: Treat medical diseases. FU with PCP. FU with cardiology. SUBJECTIVE: He stated he is feeling much better on 05/09/16. OBJECTIVE: No focalized motor or sensory deficits. PAST MEDICAL AND SURGICAL HISTORY: Please see H&P ALLERGY: Statin. MEDICATIONS: Refer to MAR REVIEW OF SYSTEMS: Constitutional: No malnutrition, weight loss, cachexia. Head: No traumatic brain or head injury. Skin: No edema, or rash. Ear: No infection, tinnitus. Eyes: No vision loss, or diplopia. Nose: No bleeding or purulent discharges. Hearing: Hearing decrease. Neck: No injury. Cardiac: CAD, HTN, HLD Pulmonary: No COPD GI: No GI Ulcer, GI bleeding Urinary/genital: UTI. Endocrine: Diabetes Mellitus, hypothyroidism, obesity. Skeletomuscular: generalized weakness. Neurological: see HP. Psychiatric: Denies drug use/abuse. Otherwise, not [id number] review of systems. PHYSICAL EXAMINATION: General appearance in no acute distress. HEENT: Normocephalic and nontraumatic. Eyes, nose, ears, and throat are unremarkable. Hearing decrease. Neck is supple. No lymphadenopathy. No bruits are heard over the carotid artery. No Crepitus. Cardiovascular: S1, S2, regular rate and rhythm. Pulmonary: Clear to auscultation bilaterally. Abdomen: Bowel sounds are positive. Extremities: No rash, lesions, or edema. No restriction of range of motion NEUROLOGICAL EXAMINATION: Awake. Oriented to time, place and person, but reactions were slow. PERRL. EOMI. CN: no focal findings. Muscle tone: within normal. Muscle strength: 5- DTR: 2- Plantar reflex: Flexor response bilaterally Gait: not examined in chair. Sensory exam: no abnormal findings. No obvious cerebellar signs elicited. F-T-N test accurate. Objective Objective Vital Signs Date Time Temp Pulse Resp B/P Pulse Ox O2 Delivery O2 Flow Rate FiO2 05/09/16 11:35 98.0 76 18 129/63 94 Nasal Cannula 1.0 98.0 Intake and Output 05/09/16 07:00 Intake Total 280 ml Output Total 1200 ml Balance -920 ml Intake Oral 280 ml Output Urine Total 1200 ml Vitals Signs Vitals VS - Last 72 Hours, by Label Date Time Temp Pulse Resp B/P Pulse Ox O2 Delivery O2 Flow Rate FiO2 05/09/16 11:35 98.0 76 18 129/63 94 Nasal Cannula 1.0 98.0 05/09/16 08:20 Nasal Cannula 1.0 05/09/16 08:17 70 125/60 05/09/16 08:00 97.9 70 18 125/60 93 Nasal Cannula 1.0 97.9 05/09/16 04:00 97.9 65 20 135/70 93 Room Air 97.9 05/09/16 00:01 98.1 71 20 134/67 96 Room Air 98.1 05/08/16 21:00 65 94/48 05/08/16 20:00 Room Air 2.0 05/08/16 20:00 98.4 70 20 166/59 96 Room Air 98.4 05/08/16 16:00 98.4 65 20 94/48 95 Room Air 98.4 05/08/16 12:00 100.3 72 20 117/58 100 Nasal Cannula 2.0 100.3 05/08/16 11:00 76 18 125/63 100 Room Air 05/08/16 10:00 84 18 152/74 100 Room Air 05/08/16 09:00 82 15 137/65 100 Room Air 05/08/16 08:53 84 137/65 05/08/16 08:00 98.5 80 18 141/50 100 Room Air 98.5 05/08/16 08:00 Room Air 05/08/16 07:00 82 20 125/53 93 Room Air Laboratory Laboratory Laboratory Tests Test 05/08/16 17:38 05/08/16 20:39 05/09/16 04:10 05/09/16 04:20 Glucose (Fingerstick) 130mg/dL (70-99) 105mg/dL (70-99) White Blood Count 7.2x10^3/uL (4.0-11.0) Red Blood Count 3.52x10^6/uL (4.30-5.70) Hemoglobin 10.8g/dL (13.0-17.5) Hematocrit 32.1% (39.0-53.0) Mean Corpuscular Volume 91fL (79-100) Mean Corpuscular Hemoglobin 31pg (25-35) Mean Corpuscular Hemoglobin Concent 34g/dL (31-37) Red Cell Distribution Width 13.9% (11.5-14.5) Platelet Count 213x10^3/uL (140-400) Neutrophils (%) (Auto) 72% (31-73) Lymphocytes (%) (Auto) 12% (24-48) Monocytes (%) (Auto) 13% (0-9) Eosinophils (%) (Auto) 4% (0-3) Basophils (%) (Auto) 0% (0-3) Neutrophils # (Auto) 5.2x10^3uL (1.8-7.7) Lymphocytes # (Auto) 0.9x10^3/uL (1.0-4.8) Monocytes # (Auto) 0.9x10^3/uL (0.0-1.1) Eosinophils # (Auto) 0.3x10^3/uL (0.0-0.7) Basophils # (Auto) 0.0x10^3/uL (0.0-0.2) Sodium Level 142mmol/L (136-145) Potassium Level 3.7mmol/L (3.5-5.1) Chloride Level 108mmol/L (98-107) Carbon Dioxide Level 23mmol/L (21-32) Anion Gap 11 (6-14) Blood Urea Nitrogen 22mg/dL (8-26) Creatinine 1.2mg/dL (0.7-1.3) Estimated GFR (Cockcroft-Gault) 59.7 Glucose Level 105mg/dL (70-99) Calcium Level 8.2mg/dL (8.5-10.1) Test 05/09/16 07:20 05/09/16 11:45 Glucose (Fingerstick) 74mg/dL (70-99) 116mg/dL (70-99) Comment Review of Relevant I have reviewed the following items rebecca (where applicable) has been applied. MARIA G HOLGUIN MD May 09, 2016 16:12
== END 2016-05-09 14:35 | disposition home or self-care (01) | DRG 246 ==
LOC: ER 11:38 → 1 WEST ICU 13:00 → 4 NORTH 05-08 19:00 → OBSVTOIN 05-08 20:46
PROVIDERS: ADMIT Internal Medicine; ATTEND Internal Medicine
PROC: 4A023N7 Measurement of Cardiac Sampling and Pressure, Left Heart, Percutaneous Approach (ICD-10-PCS; principal; 2016-05-06)
PROC: 027034Z Dilation of Coronary Artery, One Artery with Drug-eluting Intraluminal Device, Percutaneous Approach (ICD-10-PCS; 2016-05-06)
PROC: B2111ZZ Fluoroscopy of Multiple Coronary Arteries using Low Osmolar Contrast (ICD-10-PCS; 2016-05-06)
PROC: B2181ZZ Fluoroscopy of Left Internal Mammary Bypass Graft using Low Osmolar Contrast (ICD-10-PCS; 2016-05-06)
DX: I21.4 Non-ST elevation (NSTEMI) myocardial infarction (principal); G93.41 Metabolic encephalopathy; D64.9 Anemia, unspecified; E03.9 Hypothyroidism, unspecified; E11.22 Type 2 diabetes mellitus with diabetic chronic kidney disease; E11.319 Type 2 diabetes mellitus with unspecified diabetic retinopathy without macular edema; I25.10 Atherosclerotic heart disease of native coronary artery without angina pectoris; I12.9 Hypertensive chronic kidney disease with stage 1 through stage 4 chronic kidney disease, or unspecified chronic kidney disease; E66.9 Obesity, unspecified; E78.5 Hyperlipidemia, unspecified; F17.210 Nicotine dependence, cigarettes, uncomplicated; H91.90 Unspecified hearing loss, unspecified ear; I44.0 Atrioventricular block, first degree; I45.10 Unspecified right bundle-branch block; K21.9 Gastro-esophageal reflux disease without esophagitis; K59.00 Constipation, unspecified; M19.90 Unspecified osteoarthritis, unspecified site; N18.2 Chronic kidney disease, stage 2 (mild); N40.1 Benign prostatic hyperplasia with lower urinary tract symptoms; Z79.4 Long term (current) use of insulin; Z79.82 Long term (current) use of aspirin; Z82.49 Family history of ischemic heart disease and other diseases of the circulatory system; Z86.14 Personal history of Methicillin resistant Staphylococcus aureus infection; Z86.73 Personal history of transient ischemic attack (TIA), and cerebral infarction without residual deficits; Z95.1 Presence of aortocoronary bypass graft; Z95.5 Presence of coronary angioplasty implant and graft; Z88.7 Allergy status to serum and vaccine; Z88.8 Allergy status to other drugs, medicaments and biological substances
CPT/HCPCS: 36415; 70450; 71010; 80048; 80053; 80061; 82553; 82947; 83036; 83735; 84443; 84484; 85027; 87641; 92937; 93005; 93306; 93455; C1725; C1769; C1874; C1887; C1892; G0378; G0379; J0583; J1630; J1815; J2250; J2310; J3010; J3490; 99285-25

== ENCOUNTER → 2018-12-24 | Outpatient (CLI) | payer MEDICARE, OTHER ==
[~2018-12-24] MED LIST: ASPI-482 PO; ASPI325T8 PO; CLOP75TA PO; INSU100I17 SQ; INSU100V8 SQ; LEVO125T5 PO; METO25TA4 PO; MULT1TAB52 PO; NIAC100T2 PO; TAMS0.4C2 PO
--- NOTE | 2018-12-24 10:58 | CARD ---
MR#: [id number] Date of Study: 12/24/2018 Ordering Physician: LOWELL QUACH, Referring Physician: LOWELL QUACH Tech: Anh Morales RDCS APPROVED REPORT EXAM: Two-dimensional and M-mode echocardiogram with Doppler and color Doppler. Other Information Quality : Fair INDICATION Cardiac Disease: CAD Hx:CABG 2D DIMENSIONS RVDd2.8 (2.9-3.5cm)Left Atrium(2D)4.5 (1.6-4.0cm) IVSd1.3 (0.7-1.1cm)Aortic Root(2D)3.2 (2.0-3.7cm) LVDd6.1 (3.9-5.9cm)LVOT Diameter2.2 (1.8-2.4cm) PWd1.2 (0.7-1.1cm)LVDs4.5 (2.5-4.0cm) FS (%) 17.0 %SV90.7 ml LVEF(%)35.0 (>50%) Aortic Valve AoV Peak Enoc.191.4cm/sAoV VTI43.9cm AO Peak GR.14.7mmHgLVOT Peak Enoc.75.4cm/s AO Mean GR.8mmHgAVA (VMAX)1.49cm2 CRUZ (VTI)1.70cm2 Mitral Valve MV E Nxlhtjcp340.3cm/sMV DECEL CFOX47pd MV A Szyhyehx96.8cm/sE/A Ratio1.3 Tricuspid Valve TR P. Ymtkbdcz862tp/sRAP NDKXZKPV4isHm TR Peak Gr.12bkNgOUTI63itSt Pulmonary Vein S1 Lylmhiiv64.7cm/sD2 Zivwiwtf16.4cm/s LEFT VENTRICLE The Left Ventricle is mildly dilated. There is mild concentric left ventricular hypertrophy. The left ventricular ejection fraction is 45%. Basal posterior wall hypokinesis. RIGHT VENTRICLE The right ventricle is normal size. The right ventricular systolic function is normal. ATRIA The left atrium is mildly dilated. The right atrium is mildly dilated. The interatrial septum is inta ct with no evidence for an atrial septal defect or patent foramen ovale as noted on 2-D or Doppler im aging. AORTIC VALVE The aortic valve is calcified. Doppler and Color Flow revealed no significant aortic regurgitation. C alculated aortic valve area is 1.7 cm2 with maximum pressure gradient of 15 mmHg and mean pressure gr adient of 8 mmHg. There is no significant aortic stenosis. MITRAL VALVE The mitral valve is calcified but opens well. Mitral annular calcification is mild. There is no evide nce of mitral valve prolapse. There is no mitral valve stenosis. Doppler and Color-flow revealed mild to moderate mitral regurgitation. TRICUSPID VALVE The tricuspid valve is normal in structure and function. Doppler and Color Flow revealed mild tricusp id regurgitation. There is mild pulmonary hypertension. The PA pressure was estimated at 35 mmHg. The re is no tricuspid valve stenosis. PULMONIC VALVE The pulmonic valve is not well visualized. Doppler and Color Flow revealed mild to moderate pulmonic valvular regurgitation. There is no pulmonic valvular stenosis. GREAT VESSELS The aortic root is normal in size. The ascending aorta is normal in size. The IVC is normal in size a nd collapses >50% with inspiration. PERICARDIAL EFFUSION There is no evidence of significant pericardial effusion. Critical Notification Critical Value: No <Conclusion> Basal posterior wall hypokinesis. The left ventricular ejection fraction is 45%. Mild to moderate mitral regurgitation. Mild tricuspid regurgitation. The PA pressure was estimated at 35 mmHg. There is no evidence of significant pericardial effusion. Signed by : Lowell Quach, Electronically Approved : 12/24/2018 10:57:57
== END | disposition home or self-care (01) ==
LOC: ECHO 09:13
PROVIDERS: ATTEND Internal Medicine Cardiovascular Disease
DX: I08.1 Rheumatic disorders of both mitral and tricuspid valves (principal); I70.0 Atherosclerosis of aorta
CPT/HCPCS: 93306